=== PATIENT | male | born 1965 | race Caucasian/White ===

== ENCOUNTER 2017-05-22 21:39 | Observation (INO) | payer OTHER ==
[2017-05-22 22:23] LABS: #Eosinphils 0.1 thou/uL (0.0-0.7); #Lymphocytes 1.7 thou/uL (1.20-3.40); #Monocytes 0.5 thou/uL (0.11-0.59); #Neutrophils 3.2 thou/uL (1.40-6.50); %Basophils 0.5 % (0.0-1.0); %Eosinophils 2.7 % (0.0-10.0); %Lymphocytes 31.3 % (21.0-51.0); %Monocytes 8.1 % (0.0-10.0); Hematocrit 40.9 % (42.0-52.0); Mean Platelet Volume 7.5 fL (7.4-10.4); Red Blood Cell (RBC) Count 4.27 mill/uL (4.70-6.10); White Blood Cell (WBC) Count 5.5 thou/uL (4.8-10.8)
[2017-05-22 22:49] LABS: Troponin I Less than 0.010 ng/mL (< 0.028)
[2017-05-22 22:51] LABS: ALT (SGPT) 16 U/L (8-55); AST (SGOT) 21 U/L (5-34); Alkaline Phosphatase 67 U/L (40-150); Anion Gap 9 mmol/L (10-20); BUN (Urea Nitrogen) 10 mg/dL (8.9-20.6); Bilirubin, Total 0.4 mg/dL (0.2-1.2); CK (CPK) 36 U/L (30-200); Calc. Creatinine Clearance 0 mL/min (70-130); Calcium 8.5 mg/dL (7.8-10.44); Carbon Dioxide 26 mmol/L (22-29); Chloride 106 mmol/L (98-107); Estimated GFR-MDRD Greater than 90; Globulin 4.3 g/dL (2.4-3.5); Protein, Total 7.6 g/dL (6.0-8.3)
[2017-05-23 01:42] LABS: Troponin I Less than 0.010 ng/mL (< 0.028)
[2017-05-23] MEDS ORDERED: Acetaminophen 650 MG Suppository PR PRN (02:46)
[2017-05-23] MEDS ORDERED: Acetaminophen 325 MG TAB PO PRN (02:46)
[2017-05-23] MEDS ORDERED: Ondansetron ODT 4 MG TAB PO PRN (02:46)
[2017-05-23 03:17] VITALS: TEMP 98.1; BMI 17.1
[2017-05-23] MEDS ORDERED: Ondansetron ODT 4 MG TAB SL PRN (03:24)
[2017-05-23] MEDS ORDERED: Ondansetron HCl/PF 4 MG/2 ML Vial IVP PRN (03:24)
[2017-05-23] MEDS: HYDROmorphone 2 MG TAB PO PRN ×2 (04:10→09:56)
[2017-05-23 04:52] LABS: #Eosinphils 0.1 thou/uL (0.0-0.7); #Lymphocytes 1.4 thou/uL (1.20-3.40); #Monocytes 0.5 thou/uL (0.11-0.59); #Neutrophils 3.1 thou/uL (1.40-6.50); %Basophils 0.6 % (0.0-1.0); %Eosinophils 2.7 % (0.0-10.0); %Lymphocytes 27.1 % (21.0-51.0); %Monocytes 9.4 % (0.0-10.0); Hematocrit 43.9 % (42.0-52.0); Mean Platelet Volume 8.1 fL (7.4-10.4); Red Blood Cell (RBC) Count 4.59 mill/uL (4.70-6.10); White Blood Cell (WBC) Count 5.2 thou/uL (4.8-10.8)
[2017-05-23 05:18] LABS: Troponin I Less than 0.010 ng/mL (< 0.028)
[2017-05-23 07:07] LABS: Magnesium 2.2 mg/dL (1.6-2.6); Phosphorus 3.2 mg/dL (2.3-4.7)
[2017-05-23] MEDS ORDERED: fentaNYL 50 mcg/hour Patch TD SCH ×2 (08:00→09:15)
--- NOTE | 2017-05-23 08:04 | RAD ---
CHEST ONE VIEW: History: Chest pain. Comparison: 07-26-15 FINDINGS: Lungs are hyperinflated. No pneumothorax or effusion. Multiple cardiac leads are similar. There is a hazy opacity midright lung. IMPRESSION: Hazy opacity right midlung. This may be due to technique or pulmonary edema. Infection is within the differential. Follow up recommended. POS: [facility]
[2017-05-23] MEDS ORDERED: Clopidogrel Bisulfate 75 MG TAB PO SCH (09:00)
[2017-05-23] MEDS ORDERED: Venlafaxine HCl 25 MG TAB PO SCH (09:00)
[2017-05-23] MEDS ORDERED: Aspirin 325 MG TAB PO SCH (09:00)
[2017-05-23] MEDS ORDERED: levETIRAcetam 500 MG TAB PO SCH ×2 (09:00→21:00)
[2017-05-23] MEDS ORDERED: Gabapentin 300 MG CAP PO SCH (09:00)
[2017-05-23] MEDS ORDERED: HYDROmorphone 2 MG TAB PO PRN (09:03)
[2017-05-23 10:47] LABS: Acetaminophen Less than 6.0 mcg/mL (10.0-30.0); Salicylate Less than 8.0 mg/dL (15.0-30.0)
[2017-05-23 10:48] VITALS: BP 123/78
--- NOTE | 2017-05-23 12:47 | HP ---
CHIEF COMPLAINT: Chest pain and suicidal ideation. HISTORY OF PRESENT ILLNESS: Mr. Nic Clark is a 51-year-old white male patient with a prior hi story of spinal column fractures and chronic pain. He was admitted with left-sided chest pain descr ibed as sharp in nature, lasting no more than 20 seconds and reproducible by palpation. He also exp resses a desire to . He states that he has succinylcholine stashed at home and intends to take i t upon discharge. We have already notified the authorities as well as [facility]. PHYSICAL EXAMINATION: VITAL SIGNS: His blood pressure is 123/78, pulse rate 79, respirations 16. GENERAL: He is currently actually quite cheerful, awake, alert, in no distress. He is very thin, a lmost cachectic appearing. HEENT: Poor oral hygiene. NECK: Supple. CARDIAC: PMI is in the fifth intercostal space midclavicular line. S4 apical gallop. No murmur or rub noted. LUNGS: Breath sounds are diminished, but clear. No rales, rhonchi or wheezes. ABDOMEN: Flat and soft. NEUROLOGIC: No focal deficits. LABORATORY DATA: CBC: White count 5500, hemoglobin 13.8, hematocrit 40.9. Chemistries: Sodium 13 7, potassium 3.6, chloride 106, bicarbonate 26, BUN 10, creatinine 0.69. Serial troponins are all n egative. Liver enzymes normal. EKG shows a paced rhythm, no acute ischemic changes. ASSESSMENT: 1. Atypical chest pain, likely musculoskeletal. 2. Suicidal ideation. We have already contacted [facility]. We have notified the authorities regarding his stash of succinylcholine in [facility] [place]. We are awaiting a sitter until he can be evaluated by [facility].
--- NOTE | 2017-05-23 19:53 | PDOC.EVN ---
Event Note - Event Note Event Note: Pt attempted to leave AMA this morning. This was after he expressed suicidal ideation to the night team and reported to them that he had succinylcholine at his house and was wondering how to take the medication to kill himself. I went to the patient's room after getting a page from the nurse regarding patient's threates to leave AMA and discussed the importance of getting evaluated and cleared medically first, followed by evaluation by MR. Pt agreed to stay and understood. Pt then reportedly left the building without telling anyone. Security was paged and the patient was found in the ER parking lot. We then discussed on the rounds the importance of staying in the hospital to receive care. Pt understood and said he would stay. Discussed with pt that his tests so far were negative for cardiac etiology of his chest pain. He asked if he needed an echo and it was explained to him that in this case an echo was not indicated but that other work-up was being done regarding his other symptoms weakness/falls relating to patient's osteoporosis and cachexia. Pt understood. Got a call from the nurse ~1400 stating that the patient was agitated after hearing that we weren't going to do an echo on his heart. Nurse stated that patient left AMA despite trying to get the patient to stay. Nurse stated that security and the police were called. Police took down patient's information and license plate number. I discussed with my supervising attending Dr. Doe the situation and since the patient was exhibiting suicidal thoughts earlier this morning and was pending an [employer] evaluation, we decided to call the [place] police department as well as [employer] to notify both parties of the situation. Both parties stated they would go out to the patient's home to assess if the pt was actively having SI.
[2017-05-23] MEDS ORDERED: traZODone HCl 50 MG TAB PO SCH (21:00)
--- NOTE | 2017-05-24 02:57 | HP-2 ---
CODE STATUS: DNR. PRIMARY CARE PHYSICIAN: [facility] Call. ATTENDING: James Doe MD RESIDENT: Lillie Simms DO HISTORIAN: Patient. CHIEF COMPLAINT: Chest pain. 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 The pain happened at rest and was relieved on its own. No nausea, vomiting, diaphoresis or radiation of the pain. The patient de scribes a sudden sharp pain. He sees Dr. Edmondson, but has not seen him for some time due to his i nability to get to appointments. His last stress test was years ago and last echo was in 2014, whic h showed ejection fraction of 45%. The patient has had multiple falls due to the seizures and as a cause of the seizures has multiple vertebral compression fractures, leading to chronic back pain. H e takes Dilaudid and fentanyl patches regularly. Throughout the conversation, the patient continues to report his depression is a significant problem in his life, stating that he wishes he would just , also reports that he has succinylcholine that he bought from the nurse at his house, described the bottle with pink top and was asking the best way to take it to cause him to and which way w ould be faster if he drink it opposed to injecting it and so forth. The patient has a history of tw o suicide attempts in the past with Dilaudid overdose. PAST MEDICAL HISTORY: 1. CHF. 2. Hypertension. 3. Depression. 4. MCA infarct. 5. Endocarditis, status post valve replacement. 6. Multiple TIAs. 7. Chronic back pain. 8. Seizure disorder. 9. Compression fractures. PAST SURGICAL HISTORY: 1. Aortic valve replacement in 2011. 2. Pacemaker/defibrillator placement. 3. Appendectomy. 4. Left hernia repair. ALLERGIES: No known drug allergies. MEDICATIONS: 1. Aspirin 325 mg. 2. Plavix 75 mg. 3. Xanax 2 mg b.i.d. 4. Fentanyl patch 50 mcg q.72 hours. 5. Gabapentin 300 mg t.i.d. 6. Hydromorphone 4 mg q.4 hours for pain. 7. Ramipril 7.5 mg. 8. Venlafaxine 100 mg. 9. Keppra 500 mg b.i.d. FAMILY HISTORY: Noncontributory. SOCIAL HISTORY: Former smoker, one-half pack per day for 20 years. He denies alcohol and drug use, but does have history of drug addiction. REVIEW OF SYSTEMS: General: Negative for fever and chills. Positive for appetite and night sweats . Eyes: Negative for vision changes. Respiratory: Positive for cough. Cardiovascular: Positive for chest pain. Negative for palpitations or edema. Gastrointestinal: Negative for nausea, vomit ing, diarrhea, constipation or abdominal pain. Genitourinary: Positive for dysuria. Skin: Denies rashes or lesions. Musculoskeletal: Positive for pains and tenderness. Neurologic: Positive for weakness and seizures. Psychiatric: Positive for depression. PHYSICAL EXAMINATION: VITAL SIGNS: Blood pressure 114/71, pulse 81, respiratory rate 13, T-max 98.6, pulse oximetry 96% o n room air, current weight 49 kilograms. GENERAL: The patient is alert and oriented x4, in no acute distress, is thin and very cachectic [facility]. EYES: EOMI. ENT: Significant temporal wasting bilaterally along with sunken cheeks. Oral cavity reveals poor d entition. NECK: Supple, without lymphadenopathy. CARDIOVASCULAR: Regular rate and rhythm. No murmurs. RESPIRATORY: Normal effort, no retractions. Clear to auscultation bilaterally. SKIN: Without cyanosis. Warm and dry. ABDOMEN: Soft, nontender. Bowel sounds positive. No CVA tenderness. EXTREMITIES: Negative for clubbing, cyanosis or edema. MUSCULOSKELETAL: Tender to palpation along the spine, atrophic muscles throughout. NEUROLOGIC: No focal deficits. PSYCHIATRIC: Severely depressed with suicidal ideations. LABORATORY DATA: CBC: White count 5.5, hemoglobin 13.8, hematocrit 40.9, platelets 132. Chemistrie s: Sodium 137, potassium 3.6, chloride 106, CO2 of 26, BUN 10, creatinine 0.69, glucose 92. Calciu m 8.5, total protein 7.6, albumin 3.3, total bilirubin 0.4, AST 21, ALT 16, alkaline phosphatase 67. CRP 1.04. CK-MB 0.8, troponin is less than 0.010. EKG: Paced rhythm elevated R-wave progression, ST depression in lead V. ASSESSMENT AND PLAN: 1. Atypical chest pain, likely secondary to musculoskeletal cause. Trend troponins with extensive history and possible cardiology consult in the morning. 2. Suicidal ideation. We will consult [facility] and urine drug screen and alcohol level ordered. 3. Chronic pain. Continue home Dilaudid and fentanyl patch. 4. Cachexia. Prealbumin ordered and consult dietitian and Ensure supplements t.i.d. 5. History of drug use. RPR, hepatitis C and HIV ordered. DISPOSITION AND LENGTH OF HOSPITAL STAY: One-two days. Symptomatic medications will be provided. History and physical exam as well as management were discussed with Dr. James Doe.
[2017-05-24] MEDS ORDERED: Atorvastatin Calcium 10 MG TAB PO SCH (09:00)
[2017-05-24] MEDS ORDERED: Clopidogrel Bisulfate 75 MG TAB PO SCH (09:00)
--- NOTE | 2017-05-24 13:14 | DIS-2 ---
DATE OF ADMISSION: 05/23/2017 DATE OF DISCHARGE: 05/23/2017 via AMA. ADMITTING RESIDENT: Lillie Simms DO. ADMITTING ATTENDING: James Doe MD DISCHARGE RESIDENT: Marisol Ramirez MD DISCHARGE ATTENDING: James Doe MD PROCEDURES: EKG showed paced rhythm with elevated R-wave progression. ST depression in lead 5. PRIMARY DIAGNOSES: 1. Atypical chest pain. 2. Suicidal ideation. SECONDARY DIAGNOSES: 1. Chronic pain. 2. Cachexia. 3. History of drug use. DISCHARGE MEDICATIONS: The patient left AMA, not being discharged on new medications. Medications ordered during the hospital stay, trazodone 50 mg p.o. at night. HOME MEDICATIONS: 1. Diazepam 5 mg t.i.d. 2. Aspirin 325 mg p.o. daily. 3. Atorvastatin 10 mg p.o. daily. 4. Plavix 75 mg p.o. daily. 5. Dilaudid 4 mg p.o. q.4 hours. 6. Protonix 40 mg p.o. daily. 7. Ramipril 2.5 mg p.o. daily. 8. Venlafaxine 75 mg p.o. daily. 9. Fentanyl 50 mcg patch every 3 days. 10. Keppra 500 mg p.o. b.i.d. 11. Trazodone 100 mg p.o. at night. HISTORY OF PRESENT ILLNESS AND HOSPITAL COURSE: The patient is a 51-year-old male with a significan t past medical history of endocarditis in 2011 from a tooth infection status post valve replacement, which led to CVA of his MCA, and subsequent seizure disorder presenting with 1-day history of chest pain. Pain occurs at rest and was relieved on its own. The patient denies nausea, vomiting, diaph oresis, or radiation. The patient describes a sharp sudden pain. The patient's last stress test wa s several years ago and his last echo was in 2017, which showed an ejection fraction of 45%. Alina white has also had multiple falls due to seizures and as a cause of the seizures, has multiple vertebral compression fractures leading to chronic back pain. Patient takes Dilaudid and fentanyl at home re gularly. The patient continues to report depression. Patient states that he wishes he would just d ie. Also, reports that he has succinylcholine at home that he bought from a nurse. Patient describ es that the bottle has a pink top, was asking the best way to take it to cause him to , in which way will be faster from denying drinking it versus injecting it. The patient has a history of 2 jesus cide attempts in the past with Dilaudid overdose. 1. Atypical chest pain: The patient presented with this atypical chest pain that occurs at rest an d is described as sharp without radiation, without worsening on exertion, and sudden disappearance o f the pain. Cardiac profile was ordered including CK-MB and patient's troponins were less than 0.01 . The patient's CK-MB was normal at 0.8. Patient's EKG did not show any signs of ST elevation and only had one lead showing ST depression. This was not present in contiguous leads and this pain was not presenting an atypical chest pain fashion suggesting cardiac etiology. A repeat EKG was ordere d. This chest pain is likely secondary to musculoskeletal cause. Since this pain is likely musculo skeletal, a stress test was not ordered. 2. Suicidal ideation. The patient was found to have multiple suicide attempts in the past from graeme ing Dilaudid and made comments reflecting suicidal ideation on initial H and P, [facility] was consulted p ending medical clearance. While attempting to clear the patient medically, the patient attempted to leave AMA, and this was after he expressed suicidal ideation to the night team and then reported to them that he had succinylcholine at his house and was wondering how to take the medication to kill himself. Upon threatening to leave AMA, the day Medicine team went and evaluated the patient and di scussed with him the importance of staying to be medically cleared and then be evaluated by [facility] for further psychiatric care. The patient agreed to stay and understood. However, the patient then re portedly left the building without telling anyone. Security was paged and the patient was found in the ER parking lot. The day Medicine team then discussed on rounds with the patient again the impor tance of staying in the hospital to receive care. The patient understood and said he would stay. I discussed with the patient that his tests so far were negative for cardiac etiology of his chest pa in and he asked if he needed a echo. It was explained to him that in his case, an echo was not kevon cated and another workup was being done regarding his other symptoms including weakness and falls re lating to the patient's osteoporosis and cachexia. The patient understood. Later that same day at approximately 1400, the nurse called stating the patient got agitated after hearing that he was not going to receive an echo. Nurse stated that the patient left AMA despite trying to get the patient to stay. Patient also had a 1:1 sitter at this time. Nurse stated that security and the police wer e called. Police took down the patient's information and license plate number. It was discussed wi th our supervising attending, Dr. Doe, the situation, and since the patient was exhibiting suic idal thoughts earlier this morning and was pending an [facility] evaluation, we decided to call [facility] police department as well as [facility] to notify both parties of the situation. Both parties stated th at they would go out to the patient's home if the patient was actively having SI. 3. Osteoporosis. The patient states he has osteoporosis that he has had recent falls with multiple compression fractures secondary to his seizure disorder. Patient left while various labs are pendi ng including a vitamin D level. 4. Cachexia. There is additional labs were ordered, evaluating the patient's cachexia including HI V, hepatitis C, and RPR. Patient left before complete workup could be done. 5. History of drug use and RPR, hepatitis C and HIV were ordered. Again, patient left AMA without complete workup of these additional problems. DISPOSITION: The patient left AMA with what appeared to be active suicidal ideation. [facility] Department and [facility] were called and notified of the situation. The patient was psychiatricall y unstable when he left the hospital. DISCHARGE INSTRUCTIONS: There were no discharge instructions as patient left AMA. We would still r ecommend the patient follow up closely with psychiatric care as well as primary care physician to fu rther evaluate both patient's psychiatric illness and acute on chronic conditions.
[2017-05-24 15:30] LABS: Folate,Hemolysate 349.8 ng/mL (Not Estab.); Hematocrit 39.3 % (37.5-51.0); RBC Folate Test Component 890 ng/mL (>498)
[2017-05-25 17:13] LABS: Hep C PCR-Quant 6630000 IU/mL (.)
== END 2017-05-23 13:15 | disposition left against medical advice (07) ==
LOC: ERS 21:39 → 2SW 05-23 00:25 → T4-B 05-23 10:59
PROVIDERS: ADMIT Family Medicine; ATTEND Family Medicine
DX: R07.89 Other chest pain (principal); R45.851 Suicidal ideations; R64 Cachexia; I11.0 Hypertensive heart disease with heart failure; I50.9 Heart failure, unspecified; G40.909 Epilepsy, unspecified, not intractable, without status epilepticus; M54.9 Dorsalgia, unspecified; F32.9 Major depressive disorder, single episode, unspecified; M81.0 Age-related osteoporosis without current pathological fracture; Z79.02 Long term (current) use of antithrombotics/antiplatelets; Z79.82 Long term (current) use of aspirin; Z79.899 Other long term (current) drug therapy; Z91.81 History of falling; Z95.810 Presence of automatic (implantable) cardiac defibrillator; Z90.49 Acquired absence of other specified parts of digestive tract; Z95.2 Presence of prosthetic heart valve; Z98.890 Other specified postprocedural states; Z87.891 Personal history of nicotine dependence; Z91.5 Personal history of self-harm; Z87.81 Personal history of (healed) traumatic fracture; Z86.79 Personal history of other diseases of the circulatory system; Z86.73 Personal history of transient ischemic attack (TIA), and cerebral infarction without residual deficits; Z86.59 Personal history of other mental and behavioral disorders
CPT/HCPCS: 36415; 71010; 80053; 80061; 80307; 82306; 82553; 82607; 82747; 83735; 84100; 84134; 84443; 84484; 85014; 85025; 85652; 86140; 86780; 86803; 87389; 87522; 93005; 93010; G0378; G8987-GO-CH; G8988-GO-CH; G8989-GO-CH

== ENCOUNTER 2017-06-16 13:52 | Emergency (ER) | payer OTHER ==
[2017-06-16 14:52] LABS: #Eosinphils 0.1 thou/uL (0.0-0.7); #Lymphocytes 1.7 thou/uL (1.20-3.40); #Monocytes 0.5 thou/uL (0.11-0.59); #Neutrophils 3.9 thou/uL (1.40-6.50); %Basophils 0.8 % (0.0-1.0); %Eosinophils 1.9 % (0.0-10.0); %Lymphocytes 26.5 % (21.0-51.0); %Monocytes 8.6 % (0.0-10.0); Hematocrit 46.3 % (42.0-52.0); Mean Platelet Volume 7.8 fL (7.4-10.4); White Blood Cell (WBC) Count 6.3 thou/uL (4.8-10.8)
[2017-06-16 15:21] LABS: ALT (SGPT) 21 U/L (8-55); AST (SGOT) 26 U/L (5-34); Acetaminophen Less than 6.0 mcg/mL (10.0-30.0); Alkaline Phosphatase 74 U/L (40-150); Anion Gap 19 mmol/L (10-20); BUN (Urea Nitrogen) 14 mg/dL (8.4-25.7); Bilirubin, Total 0.8 mg/dL (0.2-1.2); Calc. Creatinine Clearance 0 mL/min (70-130); Calcium 9.8 mg/dL (7.8-10.44); Carbon Dioxide 21 mmol/L (22-29); Chloride 100 mmol/L (98-107); Estimated GFR-MDRD 87; Protein, Total 9.4 g/dL (6.0-8.3); Salicylate Less than 8.0 mg/dL (15.0-30.0)
--- NOTE | 2017-08-11 14:45 | EKG ---
Test Reason : Blood Pressure : / mmHG Vent. Rate : 081 BPM Atrial Rate : 081 BPM P-R Int : 178 ms QRS Dur : 152 ms QT Int : 450 ms P-R-T Axes : 045 022 069 degrees QTc Int : 522 ms AV dual-paced rhythm Abnormal ECG Confirmed by SID ULRICH, ADIA Lozano ([id number]), film editor PADDY HOLM ([id number]) on 08/11/2017 2:45:19 PM Referred By: Confirmed By:ADIA LAU MD
== END 2017-06-16 16:40 | disposition home or self-care (01) ==
LOC: ERS 13:52
DX: R55 Syncope and collapse (principal); I50.9 Heart failure, unspecified; F41.9 Anxiety disorder, unspecified; F32.9 Major depressive disorder, single episode, unspecified; F17.210 Nicotine dependence, cigarettes, uncomplicated; Z79.82 Long term (current) use of aspirin; Z79.899 Other long term (current) drug therapy; Z86.73 Personal history of transient ischemic attack (TIA), and cerebral infarction without residual deficits
CPT/HCPCS: 36415; 80053; 80307; 85025; 93005

== ENCOUNTER 2017-09-03 17:38 | Observation (INO) | payer OTHER ==
[2017-09-03] MEDS ORDERED: Ketorolac Tromethamine 30 MG/ML VIAL ONE (18:44)
[2017-09-03 19:05] LABS: CKMB 0.7 ng/mL (0-6.6); Troponin I 0.014 ng/mL (< 0.028)
--- NOTE | 2017-09-03 19:44 | RAD ---
PORTABLE CHEST: History: Chest Pain. FINDINGS: Lungs appear clear. Heart and mediastinum unremarkable. Pacemaker leads are again noted. Prosthetic a ortic valve. No change from 07-01-17. IMPRESSION: No acute finding. POS: [facility]
[2017-09-03] MEDS ORDERED: Fentanyl 100 MCG/2 ML VIAL ONE (20:24)
[2017-09-03 21:52] LABS: Troponin I 0.016 ng/mL (< 0.028)
[2017-09-03] MEDS ORDERED: Morphine 4 MG/ML Carpuject SLOW IVP PRN (22:54)
[2017-09-03] MEDS ORDERED: Calcium Carbonate 500 MG ChewTAB PO PRN (23:08)
[2017-09-03] MEDS ORDERED: Loperamide HCl 2 MG CAP PO PRN (23:08)
[2017-09-03] MEDS ORDERED: Senokot 8.6 MG TAB PO PRN (23:08)
[2017-09-03] MEDS ORDERED: Ondansetron HCl/PF 4 MG/2 ML Vial IVP PRN (23:08)
[2017-09-03] MEDS ORDERED: Diabetic Tussin 200 MG/10 ML UDCUP PO PRN (23:08)
[2017-09-03] MEDS ORDERED: cloNIDine 0.1 MG TAB PO PRN (23:08)
[2017-09-03] MEDS ORDERED: Acetaminophen 325 MG TAB PO PRN (23:08)
[2017-09-03] MEDS ORDERED: Benzonatate 100 MG CAP PO PRN (23:08)
[2017-09-03] MEDS ORDERED: Milk Of Magnesia 30 ML UDCUP PO PRN (23:08)
[2017-09-03] MEDS ORDERED: HYDROcodone/Acetaminophen 5/325 mg Tablet PO PRN (23:08)
[2017-09-03] MEDS ORDERED: Bisacodyl 5 MG TAB PO PRN (23:08)
[2017-09-03] MEDS ORDERED: hydrALAZINE 20 MG/ML VIAL SLOW IVP PRN (23:08)
[2017-09-03] MEDS ORDERED: Nitroglycerin 0.4 MG TAB (25 Tab Bottle) SL PRN (23:08)
[2017-09-03] MEDS ORDERED: Pepto Bismol Chew TAB PO PRN (23:08)
[2017-09-03] MEDS ORDERED: traMADol HCl 50 MG TAB PO PRN (23:08)
[2017-09-03] MEDS ORDERED: Loratadine 10 MG TAB PO PRN (23:08)
[2017-09-03] MEDS ORDERED: Mag-Al 1200 mg/1200 mg/30 ML UDCUP PO PRN (23:08)
--- NOTE | 2017-09-04 00:07 | HP ---
PRIMARY CARE PHYSICIAN: Dr. Romero. CHIEF COMPLAINT: Chest pain and seizures. HISTORY OF PRESENT ILLNESS: Mr. 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 History is mainly obtained by the patient himself and electronic medical records have been reviewed. He was last admitted to our facility in 2016 for suicidal ideation, but left AMA. Mr. Clark came to the [facility] today with complaints of sharp chest pain. He reports that he has been feeling really poorly for the last few weeks to months. He has very poor appetite, is hurting all the time and is barely eating. He has been having multiple psychotic episodes with seeing people around him. His elderly father is responsible for his care, but he has been to [facility] 2 or 3 times in the last few months because of his psychotic breakdown. Nevertheless, he reports that he has been having on and off chest pain for the few weeks, but today he had a very sharp episode of chest pain which "took his breath away." He describes this pain as a 10/10 in intensity with radiation down his left arm. It was associated with palpitations , but no sweating, nausea or vomiting. He denies any shortness of breath. He also reports that he has been having seizures more frequently. He has had about 5 seizures in the last few days. He reports being compliant with his anti -seizure medication of Keppra 3 times a day. He also has been on heavy pain medications including Dilaudid every 4 hours and fentanyl patch as prescribed by some pain medication physician in [facility]. Upon presentation to the emergency room, he is hemodynamically stable with the blood pressure 108/70 with a pulse of 81, saturating 98% on room air. He is afebrile. His initial workup includes a 12-lead EKG which showed paced rhythm without any ectopy. ST segments and T waves are normal. He received Toradol, aspirin as well as fentanyl in the emergency room for pain. He is now being admitted primarily for chest pain workup. His last echocardiogram was done in 05/2015 which showed ejection fraction of 45-50%, prosthetic mitral valve. Today, his initial cardiac enzymes are unremarkable x2. His CK-MB is within normal limits. PAST MEDICAL HISTORY: 1. Histologically of congestive heart failure. 2. Hypertension. 3. Depression. 4. MCA infarction. 5. Endocarditis status post mitral valve replacement. 6. Multiple TIAs. 7. Chronic back pain. 8. Chronic narcotic dependence. 9. History of seizure disorder. PAST SURGICAL HISTORY: 1. Pacemaker defibrillator placement. 2. History of splenic laceration after a fall. SOCIAL HISTORY: He is an everyday smoker. He lives close to his elderly father who is his primary caregiver. Remote history of drug abuse. Currently, denies any use of marijuana, cocaine or methamphetamines. ALLERGIES: No known medication allergies. FAMILY HISTORY=no premature CAD,CVA CURRENT MEDICATIONS: As listed in his ER record include aspirin 325 mg daily, Plavix 75 mg daily, fentanyl patch 50 mcg every 72 hours, hydromorphone 4 mg every 4 hours p.r.n., gabapentin 300 t.i.d., Keppra 250 b.i.d., but unable to confirm the dose, ramipril 7.5 mg in the morning, Xanax 5 mg b.i.d. and Effexor , unknown dose. REVIEW OF SYSTEMS: The following complete review of systems was negative, unless otherwise mentioned in the HPI or below: Constitutional: Weight loss or gain, ability to conduct usual activities. Skin: Rash, itching. Eyes: Double vision, pain. ENT/Mouth: Nose bleeding, neck stiffness, pain, tenderness. Cardiovascular: Palpitations, dyspnea on exertion, orthopnea. Respiratory: Shortness of breath, wheezing, cough, hemoptysis, fever or night sweats. Gastrointestinal: Poor appetite, abdominal pain, heartburn, nausea, vomiting, constipation, or diarrhea. Genitourinary: Urgency, frequency, dysuria, nocturia. Musculoskeletal: Pain, swelling. Neurologic/Psychiatric: Anxiety, depression. Allergy/Immunologic: Skin rash, bleeding tendency. The review of systems is negative except for those mentioned in the history and physical. He denies any fever, chills, cough, runny nose or sore throat. He denies any abdominal pain, nausea, vomiting or diarrhea. Denies any dysuria or hematuria. He denies any orthopnea or PND. PHYSICAL EXAMINATION: VITAL SIGNS: Upon presentation include blood pressure 108/70, pulse of 81, respirations 20, saturating 98% on room air, temperature 97.7. GENERAL: He is in no acute distress. He appears severely malnourished and cachectic with severe muscle wasting throughout the body, but he is alert, oriented x3. HEENT: Mucous membrane is moist and pink. No oropharyngeal exudate or erythema. Head is normocephalic, atraumatic. Pupils equal, reactive to light and accommodation. Extraocular movements intact. NECK: Supple without any lymphadenopathy, JVD or bruit. CHEST: Clear to auscultation without any wheezing, rales or rhonchi. CARDIOVASCULAR: Rate and rhythm is regular without any murmur, rubs or gallops. S1 click is heard. ABDOMEN: Soft, nontender, nondistended with positive bowel sounds. EXTREMITIES: Free of any cyanosis, clubbing, or edema. NEUROLOGIC: Nonfocal. SKIN: Free of any rashes or bruises. Feels warm and dry to touch. PSYCHIATRIC: Normal affect. The patient denies any suicidal ideation at this time. LABORATORY EXAMINATION: Twelve lead EKG by my review shows paced rhythm. Troponin 0.014 and the repeat troponin is 0.016 with a CK-MB of 0.7. Chest x- ray by my evaluation has no acute findings. No pulmonary effusion or infiltrates. IMPRESSION AND PLAN: 1. Chest pain. It is of unclear etiology at this time. Given his extensive cardiac history and prosthetic mitral valve, we will obtain a transthoracic echocardiogram. Continue to trend serial cardiac enzymes and continue aspirin and Plavix at this time. We will also have his pacemaker interrogated. Some of his pain symptoms can be due to withdrawal from the narcotics. Possibility of a panic attack and psychotic episodes is also likely. Nevertheless, he will be admitted to telemetry unit and we will monitor his symptoms closely. Restart his RENATA inhibitor once the dose is confirmed. 2. Breakthrough seizures. We will start him on IV Keppra for now and consult Neurology in the morning. He might benefit from addition of a second anti- seizure medication. We will recheck the levels of the Keppra at this time. The patient does report compliance, but by the history, he has provided it is high possibility that he has missed some dosages. He reports his seizure episodes as generalized tonic clonic, but most of the time he says the only sequela of his seizures is that he finds himself on the floor and he has hit his head or lost a tooth. 3. History of infective endocarditis with mitral valve replacement. The patient was not deemed a candidate for chronic anticoagulation therapy. He will be continued on aspirin and Plavix and as above, we will perform a transthoracic echocardiogram to assess his cardiac function. The possibility of lead infection is very low at this time. The patient does not present with any septic symptoms. 4. Psychiatric illness. The patient denies any suicidal ideation at this time. We will restart his medications once confirmed through his pharmacy. 5. Chronic narcotic dependence. The patient is desirous of getting off of his chronic narcotics. He will be deferred to pain medication clinic at [place] in long-term. We will minimize the use of pain medications at this time. 6. Severe protein-calorie malnutrition. We will consult dietitian in the morning and start him on Ensure Enlive three times a day with high protein and high-calorie regular diet. 7. History of drug abuse. The patient denies any current use. We will check his urine for drug screen at this time as well. 8. Deep venous thrombosis and gastrointestinal prophylaxis. DISPOSITION: Mr. Clark is being admitted under observation status for workup of chest pain and breakthrough seizures. Estimated length of stay at this time is less than 2 midnights. He needs long-term placement and we will have case management consult on his case to provide him with information. We will have OT, PT evaluate him to see if he is a rehabilitation candidate. CLAUDINE
[2017-09-04] MEDS: Morphine 5 MG/ML SYRINGE SLOW IVP PRN ×6 (00:23→22:44)
[2017-09-04 01:01] LABS: Bilirubin Negative (Negative); Blood, Urine Negative (Negative); Clarity CLEAR (Clear); Glucose, Urine (Dipstick) Negative (Negative); Leukocyte Negative (Negative); Nitrite Negative (Negative); Protein, Urine (Dipstick) Trace mg/dL (Neg-Trace); Specific Gravity, Urine 1.033 (1.002-1.036); Urobilinogen 0.2 mg/dL (0.2-1.0)
[2017-09-04 01:22] LABS: Amphetamine Not Detected (NotDetected); Barbiturates Screen Not Detected (NotDetected); Benzodiazepine Screen Detected (NotDetected); Cocaine Metabolite Screen Not Detected (NotDetected); Medtox Control Line Valid? VALID (VALID); Medtox Reader # READER 4; Methadone Not Detected (NotDetected); Methamphetamine Detected (NotDetected); Opiate Screen Not Detected (NotDetected); Oxycodone Screen Not Detected (NotDetected); Phencyclidine (PCP) Not Detected (NotDetected); THC/Cannabinoid Screen Not Detected (NotDetected); Tricyclic Screen Not Detected (NotDetected)
[2017-09-04 01:23] LABS: Troponin I 0.014 ng/mL (< 0.028)
[2017-09-04] MEDS: Lorazepam 1 MG TAB PO PRN ×4 (01:45→22:44)
[2017-09-04 04:34] LABS: #Basophils 0.1 thou/uL (0.0-0.2); #Eosinphils 0.1 thou/uL (0.0-0.7); #Monocytes 0.5 thou/uL (0.11-0.59); #Neutrophils 3.8 thou/uL (1.40-6.50); %Basophils 1.3 % (0.0-1.0); %Eosinophils 1.5 % (0.0-10.0); %Lymphocytes 30.9 % (21.0-51.0); %Monocytes 7.4 % (0.0-10.0); Hemoglobin 12.7 g/dL (14.0-18.0); Mean Corpuscular HGB CONC 33.3 g/dL (32.0-36.0); Mean Corpuscular Hemoglobin 32.6 pg (27.0-31.0); Mean Corpuscular Volume 97.7 fl (80.0-94.0); Mean Platelet Volume 8.2 fL (7.4-10.4); Platelet Count 182 thou/uL (130-400); RBC Distribution Width 13.2 % (11.5-14.5); Red Blood Cell (RBC) Count 3.91 mill/uL (4.70-6.10); White Blood Cell (WBC) Count 6.5 thou/uL (4.8-10.8)
[2017-09-04 04:53] LABS: Anion Gap 11 mmol/L (10-20); BUN (Urea Nitrogen) 18 mg/dL (8.4-25.7); Calc. Creatinine Clearance 118 mL/min (70-130); Calcium 7.1 mg/dL (7.8-10.44); Carbon Dioxide 18 mmol/L (22-29); Chloride 112 mmol/L (98-107); Estimated GFR-MDRD Greater than 90; Glucose 91 mg/dL (70-105); Potassium 3.1 mmol/L (3.5-5.1); Sodium 138 mmol/L (136-145)
[2017-09-04] MEDS ORDERED: Potassium Chloride 40 MEQ in Sodium Chloride 0.9% 500 ML IVPB SCH (05:15)
[2017-09-04] MEDS: Famotidine 20 MG TAB PO SCH ×2 (08:55→21:45)
[2017-09-04] MEDS: Enoxaparin Sodium 40 MG/0.4 ML SYRINGE SC SCH (08:55)
--- NOTE | 2017-09-04 13:06 | PDOC.PN ---
- Subjective Encounter Start Date: 09/04/17 Encounter Start Time: 07:00 Pt seen for followup re: chest pain. Reports on and off chest pain, chronic. No fevers or chills. No cough. - Objective MAR Reviewed: Yes Vital Signs & Weight: Vital Signs (12 hours) Temp Pulse Resp BP BP Pulse Ox 09/04/17 11:56 98.8 F 84 16 105/67 96 09/04/17 08:00 97.6 F 82 16 09/04/17 07:25 97.6 F 82 16 105/69 99 09/04/17 04:00 98.0 F 80 20 118/78 98 09/04/17 02:46 98.0 F 81 20 Weight Weight 125 lb 12.8 oz I&O: 09/03/17 09/04/17 09/05/17 06:59 06:59 06:59 Intake Total 510 Output Total 650 Balance -140 Result Diagrams: 09/04/17 00:39 09/04/17 00:39 EKG Reviewed by me: Yes (Tele: AV paced) Phys Exam - Physical Examination appears frail HEENT: PERRLA, moist MMs, sclera anicteric, oral pharynx no lesions Neck: no nodes, no JVD, supple, full ROM Respiratory: no wheezing, no rales, no rhonchi, clear to auscultation bilateral Cardiovascular: RRR Gastrointestinal: soft, non-tender, no distention, positive bowel sounds Neurological: moves all 4 limbs Psychiatric: normal affect, A&O x 3 Skin: no rash Dx/Plan (1) Chest pain Code(s): R07.9 - CHEST PAIN, UNSPECIFIED Status: Acute (2) Seizure Code(s): R56.9 - UNSPECIFIED CONVULSIONS Status: Chronic (3) Anxiety Code(s): F41.9 - ANXIETY DISORDER, UNSPECIFIED Status: Chronic (4) History of mitral valve replacement Code(s): Z95.2 - PRESENCE OF PROSTHETIC HEART VALVE Status: Chronic (5) Hypertension Code(s): I10 - ESSENTIAL (PRIMARY) HYPERTENSION Status: Chronic Qualifiers: Hypertension type: essential hypertension Qualified Code(s): I10 - Essential (primary) hypertension - Plan * . Pt also had a run of V-tach, await cardiology input. Await neurology consult re: seizure. Will likely need placement. Monitor vital signs, titrate antihypertensives as needed. Review of Systems - Review of Systems Constitutional: negative: fever, chills, sweats, weakness, malaise Respiratory: negative: Cough, Dry, Shortness of Breath, Hemoptysis, SOB with Excertion, Pleuritic Pain, Sputum, Wheezing Cardiovascular: chest pain. negative: palpitations, orthopnea, paroxysmal nocturnal dyspnea, edema, light headedness Gastrointestinal: negative: Nausea, Vomiting, Abdominal Pain, Diarrhea, Constipation, Melena, Hematochezia Genitourinary: negative: Dysuria, Frequency, Incontinence, Hematuria, Retention - Medications/Allergies Allergies/Adverse Reactions: Allergies Allergy/AdvReac Type Severity Reaction Status Date / Time No Known Drug Allergies Allergy Verified 05/23/17 03:37 Medications: Current Medications Acetaminophen (Tylenol) 650 mg PO Q4H PRN PRN Reason: Headache/Fever or Pain Hydrocodone Bitart/Acetaminophen ([place] 5/325) 1 tab PO Q4H PRN PRN Reason: Moderate Pain (4-6) Hydrocodone Bitart/Acetaminophen ([place] 5/325) 2 tab PO Q4H PRN PRN Reason: Severe Pain (7-10) Al Hydroxide/Mg Hydroxide (Maalox) 30 ml PO Q6H PRN PRN Reason: Heartburn or Indigestion Benzonatate (Tessalon) 100 mg PO Q4H PRN PRN Reason: Cough Bisacodyl (Dulcolax) 10 mg PO DAILYPRN PRN PRN Reason: Constipation Bismuth Subsalicylate (Pepto Bismol) 2 tab PO Q1H PRN PRN Reason: Diarrhea/Loose Stools Calcium Carbonate (Tums) 1,000 mg PO Q4H PRN PRN Reason: Heartburn or Indigestion Clonidine (Catapres) 0.1 mg PO Q4H PRN PRN Reason: Systolic BP > 160 Enoxaparin Sodium (Lovenox) 40 mg SC 0900 [facility] Last Admin: 09/04/17 08:55 Dose: 40 mg Famotidine (Pepcid) 20 mg PO BID [facility] Last Admin: 09/04/17 08:55 Dose: 20 mg Guaifenesin (Robitussin Sf) 200 mg PO Q4H PRN PRN Reason: Cough Hydralazine HCl (Apresoline) 10 mg SLOW IVP Q4H PRN PRN Reason: Systolic BP > 180 Levetiracetam 500 mg/ Device 100 mls @ 200 mls/hr IVPB BID MARKIE Last Admin: 09/04/17 08:55 Dose: 100 mls Lactulose (Lactulose) 20 gm PO DAILYPRN PRN PRN Reason: Constipation Loperamide HCl (Imodium) 2 mg PO PRN PRN PRN Reason: Diarrhea/Loose Stools Loratadine (Claritin) 10 mg PO DAILYPRN PRN PRN Reason: Sinus Symptoms Lorazepam (Ativan) 1 mg PO Q4H PRN PRN Reason: Anxiety/Agitation Last Admin: 09/04/17 11:15 Dose: 1 mg Magnesium Hydroxide (Milk Of Magnesium) 30 ml PO DAILYPRN PRN PRN Reason: Constipation Morphine Sulfate (Morphine) 4 mg SLOW IVP Q4H PRN PRN Reason: pain Last Admin: 09/04/17 09:30 Dose: 4 mg Nitroglycerin (Nitrostat) 0.4 mg SL Q5MIN PRN PRN Reason: Chest Pain Ondansetron HCl (Zofran) 4 mg IVP Q6H PRN PRN Reason: Nausea/Vomiting Senna (Senokot) 2 tab PO HSPRN PRN PRN Reason: Constipation Tramadol HCl (Ultram) 50 mg PO Q4H PRN PRN Reason: Moderate Pain (4-6)
[2017-09-04] MEDS: levETIRAcetam 500 MG TAB PO SCH (21:45)
--- NOTE | 2017-09-04 21:52 | CON ---
DATE OF CONSULTATION: 09/04/2017 REASON FOR CONSULTATION: Chest pain. HISTORY OF PRESENT ILLNESS: Nic Clark is a very pleasant 52-year-old gentleman with a history of mitral valve replacement following an episode of endocarditis, also has pacemaker insertion, consu lted for chest pain. Mr. Clark stated that he started having chest pain which was severe and intense earlier today at t he left side of his chest and went under his left arm. When the pain worsened, he ultimately came he re to the emergency room where he had been consulted. He is currently pain-free. The patient states his appetite is very poor. He also suffers from depression. He did receive Toradol and fentanyl in the emergency room. PAST MEDICAL HISTORY: 1. History of mitral valve replacement for endocarditis. 2. History of middle cerebral artery infarction. 3. History of transient ischemic attack. PAST SURGICAL HISTORY: Previous pacemaker insertion. SOCIAL HISTORY: He smokes daily. Remote history of drug abuse. MEDICATIONS PRIOR TO ADMISSION: 1. Aspirin. 2. Plavix. 3. Fentanyl patch. 4. Gabapentin. REVIEW OF SYSTEMS: Constitutional: No significant weight gain or loss. Vision: No changes. Heari ng: No changes. Pulmonary: No cough or wheezing. Gastrointestinal: No nausea, vomiting, or diarr hea. Skin: No rashes. Neurologic: No unilateral weakness or numbness. Psychiatric: No unusual d epression or anxiety. PHYSICAL EXAMINATION: GENERAL: This is a very thin, underweight gentleman. VITAL SIGNS: 5 feet 11 inches tall, 125 pounds. EYES: Sclerae anicteric. Mouth, mucous membranes are moist. NECK: Supple. No lymphadenopathy. LUNGS: Clear. No wheezing, rales, or rhonchi. CARDIAC: Normal S1, normal S2. There is a soft systolic murmur at the left lower sternal border. N o diastolic murmur, no S3. ABDOMEN: Soft, nontender. EXTREMITIES: No clubbing or cyanosis. There is no edema. LABORATORY AND X-RAY FINDINGS: EKG did not show any ischemic changes. Cardiac enzymes were negative. EKG showed atrial and ventricular pacing. ASSESSMENT: 1. Status post mitral valve replacement. 2. History of endocarditis. 3. Normal coronary arteries at catheterization in 2011. 4. Previous pacemaker insertion. 5. Chest pain, atypical for angina. PLAN: Stress test to be done tomorrow. Dr. Edmondson will resume care tomorrow. ADDENDUM: The patient did have an episode of nonsustained ventricular tachycardia, 26 beats. As mentioned, the patient will undergo stress testing. In addition, the patient did undergo echocardiography. The pa tient did have normal valve function. The entire report has not yet made it to the chart. Hopefully , the medical record system will be functional tomorrow.
--- NOTE | 2017-09-05 02:22 | CON ---
DATE OF CONSULTATION: 09/04/2017 REFERRING PROVIDER: Dr. Dori Valencia. REASON FOR CONSULTATION: Seizure. HISTORY OF PRESENT ILLNESS: Mr. Clark is a pleasant 52-year-old male who has been reji rned for evaluation of seizures. History is obtained from the patient. Patient reports that he deve loped seizure approximately 2 years ago after he had a stroke. 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 He reports that he had developed seizures at that tatiana e and was started on Keppra. He has never been seen by neurologist in the past. He reports that sin ce that time, he has had increasing episodes of passing out spells. He notes that over the past 1 we ek, he has passed out at least 4 or 5 times. There is no family member present at bedside. With his passing out spell, he wakes up and finds himself lying on the floor and has loss of time. He also h as chewed his teeth and tongue and has frothing around his mouth. He has had numerous falls which trevino s resulted in loss of teeth on the top front and bottom front. He states that he has been compliant with his medication, but his passing out spell continues to happen frequently. As his symptoms were becoming more frequent, he was brought to the [facility]. PAST MEDICAL HISTORY: Congestive heart failure, hypertension, depression, anxiety, history of stroke , endocarditis status post mitral valve replacement, chronic back pain, chronic narcotic dependence a nd history of seizure. PAST SURGICAL HISTORY: Significant for pacemaker, defibrillator placement, splenic laceration after a fall. SOCIAL HISTORY: He smokes on a daily basis. He lives close to his elderly father. He has a remote history of drug abuse. He denies alcohol use. CURRENT MEDICATIONS: Please review MAR. ALLERGIES: No known drug allergies. REVIEW OF SYSTEMS: As mentioned above in the HPI, otherwise negative. PHYSICAL EXAMINATION: VITAL SIGNS: Blood pressure 101/61, pulse of 83, temperature of 98.4, respirations of 16, O2 sats of 97% on room air. GENERAL: Well-developed, well-nourished male in no apparent distress. RESPIRATORY: Clear to auscultation bilaterally. CARDIOVASCULAR: Regular rate and rhythm. NEUROLOGICAL: Mental status: The patient is awake, alert, oriented x3. Speech and language: Fluen t speech. Cranial nerves: Pupils are 3 mm and reactive. Visual marks are intact. External muscle s are intact. No nystagmus is noted. Face is symmetric. Tongue and uvula midline. Motor exam show ed normal tone and bulk with a 5/5 strength in both upper and lower extremities. Sensory: Sensation is intact and symmetric. Deep tendon reflexes 2+ reflexes in both upper and lower extremities. Bab inski: Plantar responses flexion bilaterally. Coordination intact to [id number] and finger tapping bilaterally. LABORATORY DATA: Reviewed, which included CBC, BMP, CPK, troponin, CK-MB, urinalysis and urine drug screen, which are significant for hemoglobin 12.7, hematocrit 38.2, calcium 7.1. Urine drug screen w as positive for methamphetamines and benzodiazepines. IMAGING STUDIES: None. IMPRESSION: Recurrent seizures and recurrent passing out spells. Mr. Clark is a pleasant 52-year -old male with multiple medical problems who presented with the recurrent passing out spell s. These spells could be a generalized tonic clonic seizure. At this time, I would recommend obtain ing an EEG. I have increased the dose of the Keppra to 500 mg b.i.d. If he remains seizure free, he is okay to be discharged to home. He will follow up with my clinic in 4-6 weeks post-discharge. Thank you for your consultation.
[2017-09-05] MEDS: Morphine 5 MG/ML SYRINGE SLOW IVP PRN ×5 (03:09→21:28)
[2017-09-05] MEDS: Lorazepam 1 MG TAB PO PRN ×2 (04:19→20:22)
[2017-09-05] MEDS: HYDROcodone/Acetaminophen 5/325 mg Tablet PO PRN ×4 (05:45→15:42)
[2017-09-05] MEDS: Famotidine 20 MG TAB PO SCH ×2 (07:30→20:21)
[2017-09-05] MEDS: Enoxaparin Sodium 40 MG/0.4 ML SYRINGE SC SCH (07:30)
--- NOTE | 2017-09-05 09:56 | PRG ---
DATE OF SERVICE: 09/05/2017 SUBJECTIVE: Mr. Clark is mainly complaining of back pain. This is chronic. No chest pain or pre ssure noted. He did have an episode of non-sustained VT noted on the monitor. Again, Mr. Clark is recently seen for syncope and seizures. He states he has had seizures in the last 3 years after having a previous stroke. PHYSICAL EXAMINATION: VITAL SIGNS: Blood pressure 101/68, pulse 90, temperature 97.1. LUNGS: Clear to auscultation. CARDIAC: Regular rate and rhythm. ABDOMEN: Soft, nontender, nondistended. EXTREMITIES: No edema. IMPRESSION: 1. Syncope. 2. Seizure disorder. 3. Previous cerebrovascular accident. 4. Wide complex tachycardia. RECOMMENDATIONS: Mr. Clark does have a previous pacemaker in place. We will have it interrogated . I will consult with EP to assess for wide complex tachycardia and syncope versus seizure. Stress study has been ordered to assess for ischemia. Echo with Doppler is also pending.
--- NOTE | 2017-09-05 13:37 | NM ---
NUCLEAR MEDICINE CARDIAC MYOCARDIAL PERFUSION SPECT EJECTION FRACTION STUDY WALL MOTION CINE: HISTORY: 52-year-old male with chest pain. TECHNIQUE: Number of days: 1 Rest study: Tc99m sestamibi (Cardiolite) dose: 9.0 mCi Pharmacologic stress: adenosine dose: 31.9 mg Stress study: Tc99m sestamibi (Cardiolite) dose: 28.0 mCi FINDINGS: CARDIAC (MYOCARDIAL PERFUSION) SPECT There are no reversible myocardial perfusion defects. EJECTION FRACTION STUDY EF = 72% WALL MOTION CINE Normal. IMPRESSION: No evidence of reversible ischemia. FLORENTINO Galeana POS: ARMANI
[2017-09-05] MEDS: levETIRAcetam 500 MG TAB PO SCH ×2 (13:45→20:21)
[2017-09-05] MEDS ORDERED: ADENOSINE 60 MG/20 ML VIAL ONE (13:48)
--- NOTE | 2017-09-05 16:44 | PDOC.PN ---
- Subjective Encounter Start Date: 09/05/17 Encounter Start Time: 16:42 Pt seen for followup re: seizure. Denies any overnight seizures. Chest pain better. No nausea or vomiting. - Objective MAR Reviewed: Yes Vital Signs & Weight: Vital Signs (12 hours) Temp Pulse Resp BP Pulse Ox 09/05/17 15:17 97.8 F 89 20 111/71 96 09/05/17 12:20 97.3 F L 89 20 95/62 96 09/05/17 08:00 97.1 F L 90 20 09/05/17 07:25 97.1 F L 90 20 101/68 98 Weight Admit Weight 125 lb 12.8 oz Weight 125 lb 12.8 oz I&O: 09/04/17 09/05/17 09/06/17 06:59 06:59 06:59 Intake Total 510 790 Output Total 650 Balance -140 790 Result Diagrams: 09/04/17 00:39 09/04/17 00:39 EKG Reviewed by me: Yes (Tele: AV paced) Phys Exam - Physical Examination Frail HEENT: PERRLA, moist MMs, sclera anicteric, oral pharynx no lesions Neck: no nodes, no JVD, supple, full ROM Respiratory: no wheezing, no rales, no rhonchi, clear to auscultation bilateral Cardiovascular: RRR, no rub Gastrointestinal: soft, non-tender, no distention, positive bowel sounds Neurological: moves all 4 limbs Psychiatric: normal affect Skin: no rash Dx/Plan (1) Seizure Code(s): R56.9 - UNSPECIFIED CONVULSIONS Status: Acute (2) Chest pain Code(s): R07.9 - CHEST PAIN, UNSPECIFIED Status: Acute (3) Anxiety Code(s): F41.9 - ANXIETY DISORDER, UNSPECIFIED Status: Chronic (4) History of mitral valve replacement Code(s): Z95.2 - PRESENCE OF PROSTHETIC HEART VALVE Status: Chronic (5) Hypertension Code(s): I10 - ESSENTIAL (PRIMARY) HYPERTENSION Status: Chronic Qualifiers: Hypertension type: essential hypertension Qualified Code(s): I10 - Essential (primary) hypertension - Plan PT/OT, out of bed/ambulate * . Stress test normal. EEG pending. Pt will likely need placement in a LTC facility upon discharge. Review of Systems - Review of Systems Respiratory: negative: Cough, Dry, Shortness of Breath, Hemoptysis, SOB with Excertion, Pleuritic Pain, Sputum, Wheezing Cardiovascular: chest pain. negative: palpitations, orthopnea, paroxysmal nocturnal dyspnea, edema, light headedness Gastrointestinal: negative: Nausea, Vomiting, Abdominal Pain, Diarrhea, Constipation, Melena, Hematochezia Genitourinary: negative: Dysuria, Frequency, Incontinence, Hematuria, Retention , Other Neurological: Seizures - Medications/Allergies Allergies/Adverse Reactions: Allergies Allergy/AdvReac Type Severity Reaction Status Date / Time No Known Drug Allergies Allergy Verified 05/23/17 03:37 Medications: Current Medications Acetaminophen (Tylenol) 650 mg PO Q4H PRN PRN Reason: Headache/Fever or Pain Hydrocodone Bitart/Acetaminophen ([place] 5/325) 1 tab PO Q4H PRN PRN Reason: Moderate Pain (4-6) Hydrocodone Bitart/Acetaminophen ([place] 5/325) 2 tab PO Q4H PRN PRN Reason: Severe Pain (7-10) Last Admin: 09/05/17 15:42 Dose: 2 tab Al Hydroxide/Mg Hydroxide (Maalox) 30 ml PO Q6H PRN PRN Reason: Heartburn or Indigestion Benzonatate (Tessalon) 100 mg PO Q4H PRN PRN Reason: Cough Bisacodyl (Dulcolax) 10 mg PO DAILYPRN PRN PRN Reason: Constipation Bismuth Subsalicylate (Pepto Bismol) 2 tab PO Q1H PRN PRN Reason: Diarrhea/Loose Stools Calcium Carbonate (Tums) 1,000 mg PO Q4H PRN PRN Reason: Heartburn or Indigestion Clonidine (Catapres) 0.1 mg PO Q4H PRN PRN Reason: Systolic BP > 160 Enoxaparin Sodium (Lovenox) 40 mg SC 0900 [facility] Last Admin: 09/05/17 07:30 Dose: 40 mg Famotidine (Pepcid) 20 mg PO BID [facility] Last Admin: 09/05/17 07:30 Dose: 20 mg Guaifenesin (Robitussin Sf) 200 mg PO Q4H PRN PRN Reason: Cough Hydralazine HCl (Apresoline) 10 mg SLOW IVP Q4H PRN PRN Reason: Systolic BP > 180 Lactulose (Lactulose) 20 gm PO DAILYPRN PRN PRN Reason: Constipation Levetiracetam (Keppra) 500 mg PO BID [facility] Last Admin: 09/05/17 13:45 Dose: Not Given Loperamide HCl (Imodium) 2 mg PO PRN PRN PRN Reason: Diarrhea/Loose Stools Loratadine (Claritin) 10 mg PO DAILYPRN PRN PRN Reason: Sinus Symptoms Lorazepam (Ativan) 1 mg PO Q4H PRN PRN Reason: Anxiety/Agitation Last Admin: 09/05/17 04:19 Dose: 1 mg Magnesium Hydroxide (Milk Of Magnesium) 30 ml PO DAILYPRN PRN PRN Reason: Constipation Morphine Sulfate (Morphine) 4 mg SLOW IVP Q4H PRN PRN Reason: pain Last Admin: 09/05/17 12:30 Dose: 4 mg Nitroglycerin (Nitrostat) 0.4 mg SL Q5MIN PRN PRN Reason: Chest Pain Ondansetron HCl (Zofran) 4 mg IVP Q6H PRN PRN Reason: Nausea/Vomiting Last Admin: 09/04/17 16:20 Dose: 4 mg Senna (Senokot) 2 tab PO HSPRN PRN PRN Reason: Constipation Tramadol HCl (Ultram) 50 mg PO Q4H PRN PRN Reason: Moderate Pain (4-6) Last Admin: 09/04/17 16:17 Dose: 50 mg
--- NOTE | 2017-09-05 20:23 | CON ---
DATE OF CONSULTATION: 09/05/2017 CONSULTING PHYSICIAN: Cresencio Edmondson M.D. REASON FOR CONSULTATION: Nonsustained ventricular tachycardia. HISTORY OF PRESENT ILLNESS: Mr. Clark is a 52-year-old gentleman with a very complex history who is recently admitted to the hospital and presented with chest pain. He has been feeling poorly of la te suffering multiple seizures and prior to presenting to the emergency room, he had developed severe chest pain in his left chest. Axillary radiating down into his arm and back to his left shoulder bl mellissa. He underwent workup and had a stress test today, which was negative for reversible ischemia. C urrently, he denies any chest pain. Patient does report that he has had some similar episodes prior to presenting to the emergency room for this chest pain. He has also been falling at home more recen tly. He reports that he does occasionally feel like his heart is racing. The patient reports that he has continued to lose weight despite eating excessively. He has a longstanding history of depression wit h previous suicide attempt. PAST MEDICAL HISTORY: 1. History of mitral valve endocarditis, status post mitral valve replacement, on 10/21/2011 with a bioprosthetic valve. 2. Previous CVA, related secondary to endocarditis with residual balance issues and right-sided weak ness. 3. Multiple transient ischemic attack. 4. History of syncope in 05/2012, with fall and subsequent splenic laceration and T4 compression fra cture, contradicting oral anticoagulation therapy. 5. Third degree AV block. 6. Ventricular dyssynchrony. 7. 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 8. Chronic pain. 9. Severe depression with previous suicide attempt. PAST SURGICAL HISTORY: Implantation of pacemaker originally and patient had a dual chamber pacemaker in 10/2011, however, he presented with erosion or infection and in 05/2012, his pacemaker was explan emmanuel and upgrade to MINING MACHINERY ASSEMBLER pacemaker. ALLERGIES: No known drug allergies. FAMILY HISTORY: Denies sudden cardiac or premature coronary artery disease with onset before t he age of 56. SOCIAL HISTORY: Positive for continued tobacco habituation, positive for remote history of drug abu se. HOME MEDICATIONS: Aspirin, Plavix, Fentanyl patch, gabapentin, and Dilaudid. REVIEW OF SYSTEMS: Constitutional: Patient denies fevers, chills, night sweats, insomnia. Positive for fatigue and continued weight loss, that was unintentional. HEENT: Patient denies changes in vi sofía, hearing, and double vision. Cardiovascular: Negative for shortness of breath. Positive for r ecent chest pain which is currently resolved, negative for tachycardia, syncope or near syncope. Res piratory: Negative for chronic cough, hemoptysis or recent respiratory illness. GI: Denies nausea, vomiting, diarrhea, or blood in stool. Genitourinary: Patient denies frequency, hesitancy for diff iculty urinating. Hematologic: Patient denies any bleeding dyscrasias, easy bruising, or uncontroll ably bleeding. Neurologic: Patient denies any unilateral weakness, speech changes, vision changes, facial droop, or paresthesias. Musculoskeletal: Patient denies arthritis, myalgias, or arthralgias. Psychiatric: Positive for depression and anxiety. PHYSICAL EXAMINATION: GENERAL: Patient is cachectic male who appears chronically ill appearing. His speech is c lear. His affect mostly appropriate, but anxious. NEUROLOGIC: He is alert and oriented. HEENT: Sclerae anicteric. His mucous membranes are moist. He has very poor dentation. NECK: His neck is supple without lymphadenopathy or thyromegaly. Trachea is midline. There is no j ugular venous distention. LUNGS: Clear to auscultation without wheezes, crackles, or rhonchi. Good bilateral excursion, respi rations are even and nonlabored. CARDIOVASCULAR: His heart sounds are regularly regular, with a slight systolic murmur along the lowe r left sternal border. EXTREMITIES: Warm and dry to touch without clubbing, cyanosis, or edema. ABDOMEN: Benign. There is no hepatosplenomegaly and hepatojugular reflux is negative. His device i s palpable at the right infraclavicular fossa. SKIN: Very thin over the device implant and is high risk for erosion, however, no open areas or eros ion is noted on assessment. DATABASE: Serial cardiac enzymes were negative. Cardiac stress test was negative for reversible isc hemia, showed normal wall motion and LVEF 72%. EKG was reviewed. Patient did have nonsustained vent ricular tachycardia documented, currently in normal sinus rhythm with demand pacing. DEVICE INTERROGATION: The patient has a [employer] MINING MACHINERY ASSEMBLER-P in-situ. Date of implant is . Battery voltage is 2.95 volts, with estimated longevity of 2 years, the atrial lead is Medtroni c [id number], lead impedance is 399 ohms. Capture threshold is 0.625 volts at 0.4 milliseconds. RV lead i s Medtronic 476, lead impedance is 513 ohms. Capture threshold is 1.125 volts. at 0.4 milliseconds. Lead impedance is 608 ohms. Mode is DDDR. Interrogation did reveal there were 4 episodes of nonsus tained VT. There is no documented atrial fibrillation or atrial flutter. The OptiVol fluid index trevino s fluctuated greatly over the past year, but currently is below threshold, patient is atrially paced 56% and biventricular paced 99.7%, captured VT episodes are very brief, less than 5 beats in duration and broke spontaneously. RECENT LABORATORY DATA: Hematology from 09/04/2017, WBC 6.5, hemoglobin 12.7, hematocrit 38.2, plate lets 182, chemistry from 122. Sodium 138, potassium 3.1, chloride 112, carbon dioxide 18, BUN 18, cr eatinine 0.6, calcium 7.1 and toxicology screen is negative except for levetiracetam. Chest x-ray do ne 09/03/2017. No acute findings. Pacemaker leads are noted and prosthetic aortic valve. IMPRESSION: 1. Nonsustained ventricular tachycardia without correlation to symptoms. 2. Chest pain with negative stress test on 09/05/2017. 3. History of complete AV block, and ventricular dyssynchrony with subsequent biventricular pacemake r placement in 05/2012. 4. MINING MACHINERY ASSEMBLER-P with adequate functioning. 5. History of mitral valve endocarditis with subsequent mitral valve replacement, on 10/21/2011. 6. History of systolic congestive heart failure, which is now recovered with an LVEF of 72%. 7. changes, possibly orthostatic. 8. History of multiple cerebrovascular accident, secondary to mitral valve endocarditis. 9. Hypokalemia. RECOMMENDATIONS: At this point, upgrading to an ICD is not clinically indicated. Recommendation is for beta oliver therapy or possibly Sotalol to find patient's kidney function, as well as electrolyt e correction. We will continue to follow the patient. Thank you for allowing us to participate in the care of this patient. Dictated by Latonya Gooden NP
[2017-09-06] MEDS: Lorazepam 1 MG TAB PO PRN ×3 (01:35→09:50)
[2017-09-06] MEDS: Morphine 5 MG/ML SYRINGE SLOW IVP PRN ×6 (01:35→22:49)
[2017-09-06 08:05] LABS: Anion Gap 12 mmol/L (10-20); BUN (Urea Nitrogen) 22 mg/dL (8.4-25.7); Calc. Creatinine Clearance 95 mL/min (70-130); Calcium 9.8 mg/dL (7.8-10.44); Carbon Dioxide 27 mmol/L (22-29); Chloride 102 mmol/L (98-107); Estimated GFR-MDRD Greater than 90; Glucose 96 mg/dL (70-105); Potassium 4.8 mmol/L (3.5-5.1); Sodium 136 mmol/L (136-145)
[2017-09-06] MEDS: Famotidine 20 MG TAB PO SCH ×2 (08:37→20:05)
[2017-09-06] MEDS: levETIRAcetam 500 MG TAB PO SCH ×2 (08:37→20:05)
[2017-09-06] MEDS: Enoxaparin Sodium 40 MG/0.4 ML SYRINGE SC SCH (08:38)
--- NOTE | 2017-09-06 09:14 | PRG ---
DATE OF SERVICE: 09/06/2017 SUBJECTIVE: Mr. Clark's status is stable. No chest pain or pressure noted. His recent stress st udy was negative for ischemia. OBJECTIVE: VITAL SIGNS: Blood pressure 115/70, pulse 91, temperature 98.3. LUNGS: Clear to auscultation. HEART: Regular rate and rhythm. ABDOMEN: Soft, nontender, nondistended. EXTREMITIES: No edema. LABORATORY DATA: Potassium is 4.8. Telemetry monitoring, no further dysrhythmias. IMPRESSION: 1. Wide complex tachycardia. 2. Mitral valve replacement. 3. Hypokalemia. RECOMMENDATIONS: Mr. Clark is hypokalemic likely a precipitating cause to his wide complex tachyc ardia. His LVEF is normal. At this point, would continue conservative therapy. From a CV standpoin t, I have no further recommendations.
--- NOTE | 2017-09-06 10:21 | PRG ---
DATE OF SERVICE: 09/06/2017 SUBJECTIVE: Mr. Clark is doing fair. He seems to be depressed and has back pain, has no cardiac symptoms are noted. OBJECTIVE: VITAL SIGNS: Blood pressure 112/74, heart rate 80, respirations 14, temperature 97.6 degrees Fahrenh eit. GENERAL: Alert and oriented man in no apparent distress. NECK: Supple. Jugular veins not distended. CHEST: Coarse, no crackles. CARDIOVASCULAR: Heart sounds are regular. No murmur or gallop. ABDOMEN: Benign. Bowel sounds positive. EXTREMITIES: Extremities without edema, clubbing or cyanosis. LABORATORY DATA: No major abnormalities, hemoglobin decreased to 12.7. Telemetry strips reveal sinus rhythm with ventricular pacing. ASSESSMENT AND PLAN: Mr. Clark is a 52-year-old man with prior history of congestive heart failur e and cardiomyopathy, now with normalized LV function. He has a well-functioning BI-V ICD in place. Hence, history of AV block. He has mitral valve replacement in the past. He has had a little wide complex tachycardia on pacemaker interrogation, but not corresponding to his syncopal spells. The pa cemaker is functioning adequately. He had some hypokalemia. At this point, I felt that his normaliz ing left ventricular function likely no correlation to his nonsustained arrhythmias, ICD upgrade is l ikely not necessary. Normalizing potassium levels, potentially adding beta blockers and improving h is hydration and nutritional status likely would be beneficial. Thank you for allowing me to participate in the care of your patient.
--- NOTE | 2017-09-06 12:45 | PDOC.PN ---
- Subjective Encounter Start Date: 09/06/17 Encounter Start Time: 07:40 Pt seen for followup re: chest pain. Reports on and off pain, but better. No nausea or vomiting. - Objective MAR Reviewed: Yes Vital Signs & Weight: Vital Signs (12 hours) Temp Pulse Resp BP BP Pulse Ox 09/06/17 11:51 97.5 F L 85 18 104/65 98 09/06/17 08:00 97.6 F 82 14 112/74 99 09/06/17 03:52 98.3 F 91 18 115/70 98 Weight Admit Weight 125 lb 12.8 oz Weight 125 lb 12.8 oz I&O: 09/05/17 09/06/17 09/07/17 06:59 06:59 06:59 Intake Total 790 1090 Balance 790 1090 Result Diagrams: 09/04/17 00:39 09/06/17 07:41 EKG Reviewed by me: Yes (Tele: AV paced) Phys Exam - Physical Examination Frail HEENT: moist MMs Neck: supple Respiratory: clear to auscultation bilateral Cardiovascular: RRR Gastrointestinal: soft Neurological: moves all 4 limbs Psychiatric: normal affect Skin: no rash Dx/Plan (1) Chest pain Code(s): R07.9 - CHEST PAIN, UNSPECIFIED Status: Acute (2) Seizure Code(s): R56.9 - UNSPECIFIED CONVULSIONS Status: Acute (3) Anxiety Code(s): F41.9 - ANXIETY DISORDER, UNSPECIFIED Status: Chronic (4) History of mitral valve replacement Code(s): Z95.2 - PRESENCE OF PROSTHETIC HEART VALVE Status: Chronic (5) Hypertension Code(s): I10 - ESSENTIAL (PRIMARY) HYPERTENSION Status: Chronic Qualifiers: Hypertension type: essential hypertension Qualified Code(s): I10 - Essential (primary) hypertension - Plan * . Stress test result noted. Appreciate cardiology, EP and neurology services input. Pt needs discharge planning, likely placement in LTC. Review of Systems - Review of Systems Respiratory: negative: Cough, Dry, Shortness of Breath, Hemoptysis, SOB with Excertion, Pleuritic Pain, Sputum, Wheezing Cardiovascular: negative: chest pain, palpitations, orthopnea, paroxysmal nocturnal dyspnea, edema, light headedness - Medications/Allergies Allergies/Adverse Reactions: Allergies Allergy/AdvReac Type Severity Reaction Status Date / Time No Known Drug Allergies Allergy Verified 05/23/17 03:37 Medications: Current Medications Acetaminophen (Tylenol) 650 mg PO Q4H PRN PRN Reason: Headache/Fever or Pain Hydrocodone Bitart/Acetaminophen ([place] 5/325) 1 tab PO Q4H PRN PRN Reason: Moderate Pain (4-6) Hydrocodone Bitart/Acetaminophen ([place] 5/325) 2 tab PO Q4H PRN PRN Reason: Severe Pain (7-10) Last Admin: 09/05/17 15:42 Dose: 2 tab Al Hydroxide/Mg Hydroxide (Maalox) 30 ml PO Q6H PRN PRN Reason: Heartburn or Indigestion Benzonatate (Tessalon) 100 mg PO Q4H PRN PRN Reason: Cough Bisacodyl (Dulcolax) 10 mg PO DAILYPRN PRN PRN Reason: Constipation Bismuth Subsalicylate (Pepto Bismol) 2 tab PO Q1H PRN PRN Reason: Diarrhea/Loose Stools Calcium Carbonate (Tums) 1,000 mg PO Q4H PRN PRN Reason: Heartburn or Indigestion Clonidine (Catapres) 0.1 mg PO Q4H PRN PRN Reason: Systolic BP > 160 Enoxaparin Sodium (Lovenox) 40 mg SC 0900 [facility] Last Admin: 09/06/17 08:38 Dose: 40 mg Famotidine (Pepcid) 20 mg PO BID [facility] Last Admin: 09/06/17 08:37 Dose: 20 mg Guaifenesin (Robitussin Sf) 200 mg PO Q4H PRN PRN Reason: Cough Hydralazine HCl (Apresoline) 10 mg SLOW IVP Q4H PRN PRN Reason: Systolic BP > 180 Lactulose (Lactulose) 20 gm PO DAILYPRN PRN PRN Reason: Constipation Levetiracetam (Keppra) 500 mg PO BID [facility] Last Admin: 09/06/17 08:37 Dose: 500 mg Loperamide HCl (Imodium) 2 mg PO PRN PRN PRN Reason: Diarrhea/Loose Stools Loratadine (Claritin) 10 mg PO DAILYPRN PRN PRN Reason: Sinus Symptoms Lorazepam (Ativan) 1 mg PO Q4H PRN PRN Reason: Anxiety/Agitation Last Admin: 09/06/17 09:50 Dose: 1 mg Magnesium Hydroxide (Milk Of Magnesium) 30 ml PO DAILYPRN PRN PRN Reason: Constipation Morphine Sulfate (Morphine) 4 mg SLOW IVP Q4H PRN PRN Reason: pain Last Admin: 09/06/17 09:50 Dose: 4 mg Nitroglycerin (Nitrostat) 0.4 mg SL Q5MIN PRN PRN Reason: Chest Pain Ondansetron HCl (Zofran) 4 mg IVP Q6H PRN PRN Reason: Nausea/Vomiting Last Admin: 09/04/17 16:20 Dose: 4 mg Senna (Senokot) 2 tab PO HSPRN PRN PRN Reason: Constipation Tramadol HCl (Ultram) 50 mg PO Q4H PRN PRN Reason: Moderate Pain (4-6) Last Admin: 09/04/17 16:17 Dose: 50 mg
[2017-09-06] MEDS ORDERED: HYDROmorphone 2 MG TAB PO PRN (12:55)
[2017-09-06] MEDS: Diazepam 5 MG TAB PO SCH (20:05)
[2017-09-06] MEDS ORDERED: traZODone HCl 50 MG TAB PO SCH (21:00)
[2017-09-06] MEDS ORDERED: levETIRAcetam 500 MG TAB PO SCH (21:00)
[2017-09-07] MEDS: Morphine 5 MG/ML SYRINGE SLOW IVP PRN (04:50)
[2017-09-07] MEDS: Famotidine 20 MG TAB PO SCH (08:06)
[2017-09-07] MEDS: Enoxaparin Sodium 40 MG/0.4 ML SYRINGE SC SCH (08:06)
[2017-09-07] MEDS: levETIRAcetam 500 MG TAB PO SCH (08:06)
[2017-09-07] MEDS ORDERED: Morphine 5 MG/ML SYRINGE SLOW IVP PRN (08:52)
[2017-09-07] MEDS ORDERED: Aspirin 325 MG TAB PO SCH (09:00)
[2017-09-07] MEDS ORDERED: Clopidogrel Bisulfate 75 MG TAB PO SCH (09:00)
[2017-09-07] MEDS ORDERED: Atorvastatin Calcium 10 MG TAB PO SCH (09:00)
[2017-09-07 09:59] VITALS: BP 99/73; TEMP 97.3
[2017-09-07] MEDS: Diazepam 5 MG TAB PO SCH (10:00)
[2017-09-07 10:10] LABS: Anion Gap 14 mmol/L (10-20); BUN (Urea Nitrogen) 22 mg/dL (8.4-25.7); Calc. Creatinine Clearance 78 mL/min (70-130); Calcium 9.7 mg/dL (7.8-10.44); Carbon Dioxide 22 mmol/L (22-29); Chloride 103 mmol/L (98-107); Estimated GFR-MDRD Greater than 90; Glucose 153 mg/dL (70-105); Magnesium 2.6 mg/dL (1.6-2.6); Potassium 4.4 mmol/L (3.5-5.1); Sodium 135 mmol/L (136-145)
[2017-09-07 13:20] VITALS: BMI 16.3
--- NOTE | 2017-09-07 13:20 | PDOC.PN ---
- Subjective Encounter Start Date: 09/07/17 Encounter Start Time: 13:18 Subjective: refusing to go to a NH.c/o bad back pain -: no overnight events - Objective MAR Reviewed: Yes Vital Signs & Weight: Vital Signs (12 hours) Temp Pulse Resp BP BP Pulse Ox 09/07/17 09:59 97.3 F L 100 18 99/73 97 09/07/17 08:07 115/70 09/07/17 08:00 97.4 F L 104 H 18 09/07/17 07:28 97.4 F L 104 H 18 94/68 97 09/07/17 04:50 98.0 F 98 14 103/72 97 Weight Admit Weight 125 lb 12.8 oz Weight 117 lb I&O: 09/06/17 09/07/17 09/08/17 06:59 06:59 06:59 Intake Total 1090 1970 251 Balance 1090 1970 251 Result Diagrams: 09/04/17 00:39 09/07/17 09:36 Additional Labs: Laboratory Tests 09/03/17 09/03/17 09/04/17 18:38 21:20 00:01 Troponin I 0.014 0.016 U Methamphetamines Scrn Detected H U Benzodiazepines Scrn Detected H 09/04/17 00:39 Troponin I 0.014 U Methamphetamines Scrn U Benzodiazepines Scrn Phys Exam - Physical Examination Constitutional: NAD cachectic HEENT: PERRLA, moist MMs, sclera anicteric, TM's clear, oral pharynx no lesions , 2+ tonsils Neck: no JVD Respiratory: no wheezing, no rales, no rhonchi, clear to auscultation bilateral Cardiovascular: RRR, no significant murmur Gastrointestinal: soft, non-tender, no distention, positive bowel sounds Musculoskeletal: no edema, pulses present Neurological: non-focal, normal sensation, moves all 4 limbs Psychiatric: normal affect, A&O x 3 Skin: no rash Dx/Plan (1) Breakthrough seizure Code(s): G40.919 - EPILEPSY, UNSP, INTRACTABLE, WITHOUT STATUS EPILEPTICUS Status: Acute Comment: Stable. On keppra BID. EEG NL.discussed with neurology (2) Severe malnutrition Code(s): E43 - UNSPECIFIED SEVERE PROTEIN-CALORIE MALNUTRITION Status: Chronic (3) Methamphetamine abuse Code(s): F15.10 - OTHER STIMULANT ABUSE, UNCOMPLICATED Status: Acute (4) Chest pain Code(s): R07.9 - CHEST PAIN, UNSPECIFIED Status: Resolved (5) H/O endocarditis Code(s): Z86.79 - PERSONAL HISTORY OF OTHER DISEASES OF THE CIRCULATORY SYSTEM Status: Chronic (6) History of mitral valve replacement Code(s): Z95.2 - PRESENCE OF PROSTHETIC HEART VALVE Status: Chronic (7) Hypertension Code(s): I10 - ESSENTIAL (PRIMARY) HYPERTENSION Status: Chronic Qualifiers: Hypertension type: essential hypertension Qualified Code(s): I10 - Essential (primary) hypertension - 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 -: ? safety to return home d/t same & ongoing drug abuse -: will have Speech do a congnitive eval. * .If pt qualifies ,will DC to [place],otherwise home as per his wishes. * hemodynamically stable Review of Systems - Review of Systems Constitutional: negative: fever, chills, sweats, weakness, malaise, other Respiratory: negative: Cough, Dry, Shortness of Breath, Hemoptysis, SOB with Excertion, Pleuritic Pain, Sputum, Wheezing Cardiovascular: negative: chest pain, palpitations, orthopnea, paroxysmal nocturnal dyspnea, edema, light headedness, other Gastrointestinal: negative: Nausea, Vomiting, Abdominal Pain, Diarrhea, Constipation, Melena, Hematochezia, Other Genitourinary: negative: Dysuria, Frequency, Incontinence, Hematuria, Retention , Other Musculoskeletal: negative: Neck Pain, Shoulder Pain, Arm Pain, Back Pain, Hand Pain, Leg Pain, Foot Pain, Other Neurological: negative: Weakness, Numbness, Incoordination, Change in Speech, Confusion, Seizures, Other - Medications/Allergies Allergies/Adverse Reactions: Allergies Allergy/AdvReac Type Severity Reaction Status Date / Time No Known Drug Allergies Allergy Verified 05/23/17 03:37 Medications: Current Medications Acetaminophen (Tylenol) 650 mg PO Q4H PRN PRN Reason: Headache/Fever or Pain Hydrocodone Bitart/Acetaminophen (Banner 5/325) 1 tab PO Q4H PRN PRN Reason: Moderate Pain (4-6) Last Admin: 09/07/17 08:14 Dose: 1 tab Hydrocodone Bitart/Acetaminophen (Banner 5/325) 2 tab PO Q4H PRN PRN Reason: Severe Pain (7-10) Last Admin: 09/05/17 15:42 Dose: 2 tab Al Hydroxide/Mg Hydroxide (Maalox) 30 ml PO Q6H PRN PRN Reason: Heartburn or Indigestion Aspirin (Aspirin) 325 mg PO DAILY REPLACED BY [facility] Last Admin: 09/07/17 08:07 Dose: 325 mg Atorvastatin Calcium (Lipitor) 10 mg PO DAILY REPLACED BY [facility] Last Admin: 09/07/17 08:06 Dose: 10 mg Benzonatate (Tessalon) 100 mg PO Q4H PRN PRN Reason: Cough Bisacodyl (Dulcolax) 10 mg PO DAILYPRN PRN PRN Reason: Constipation Bismuth Subsalicylate (Pepto Bismol) 2 tab PO Q1H PRN PRN Reason: Diarrhea/Loose Stools Calcium Carbonate (Tums) 1,000 mg PO Q4H PRN PRN Reason: Heartburn or Indigestion Clonidine (Catapres) 0.1 mg PO Q4H PRN PRN Reason: Systolic BP > 160 Clopidogrel Bisulfate (Plavix) 75 mg PO DAILY REPLACED BY [facility] Last Admin: 09/07/17 08:06 Dose: 75 mg Diazepam (Valium) 5 mg PO BID REPLACED BY [facility] Last Admin: 09/07/17 10:00 Dose: 5 mg Enoxaparin Sodium (Lovenox) 40 mg SC 0900 REPLACED BY [facility] Last Admin: 09/07/17 08:06 Dose: 40 mg Famotidine (Pepcid) 20 mg PO BID REPLACED BY [facility] Last Admin: 09/07/17 08:06 Dose: 20 mg Guaifenesin (Robitussin Sf) 200 mg PO Q4H PRN PRN Reason: Cough Hydralazine HCl (Apresoline) 10 mg SLOW IVP Q4H PRN PRN Reason: Systolic BP > 180 Lactulose (Lactulose) 20 gm PO DAILYPRN PRN PRN Reason: Constipation Levetiracetam (Keppra) 500 mg PO BID REPLACED BY [facility] Last Admin: 09/07/17 08:06 Dose: 500 mg Loperamide HCl (Imodium) 2 mg PO PRN PRN PRN Reason: Diarrhea/Loose Stools Loratadine (Claritin) 10 mg PO DAILYPRN PRN PRN Reason: Sinus Symptoms Magnesium Hydroxide (Milk Of Magnesium) 30 ml PO DAILYPRN PRN PRN Reason: Constipation Morphine Sulfate (Morphine) 4 mg SLOW IVP Q6H PRN PRN Reason: Pain Last Admin: 09/07/17 11:57 Dose: 4 mg Nitroglycerin (Nitrostat) 0.4 mg SL Q5MIN PRN PRN Reason: Chest Pain Ondansetron HCl (Zofran) 4 mg IVP Q6H PRN PRN Reason: Nausea/Vomiting Last Admin: 09/04/17 16:20 Dose: 4 mg Pantoprazole Sodium (Protonix) 40 mg PO 2100 REPLACED BY [facility] Senna (Senokot) 2 tab PO HSPRN PRN PRN Reason: Constipation Sodium Chloride (Flush - Normal Saline) 10 ml IVF Q12HR REPLACED BY [facility] Last Admin: 09/07/17 10:02 Dose: 10 ml Sodium Chloride (Flush - Normal Saline) 10 ml IVF PRN PRN PRN Reason: Saline Flush Tramadol HCl (Ultram) 50 mg PO Q4H PRN PRN Reason: Moderate Pain (4-6) Last Admin: 09/04/17 16:17 Dose: 50 mg Trazodone HCl (Desyrel) 100 mg PO HS REPLACED BY [facility] Last Admin: 09/07/17 00:47 Dose: 100 mg Venlafaxine HCl (Effexor) 75 mg PO DAILY REPLACED BY [facility] Last Admin: 09/07/17 08:15 Dose: 75 mg
--- NOTE | 2017-09-07 18:26 | PRG ---
DATE OF SERVICE: 09/07/2017 SUBJECTIVE: Mr. Clark at our [facility] followup. He seems to be doing fair, althoug h he still has some back pain, would like to get off the narcotic pain medications. He denies palpit ations or loss of consciousness. OBJECTIVE: VITAL SIGNS: Blood pressure is 99/73, heart rate 100, respirations 18, temperature 97.3 degrees Fahr enheit. GENERAL: Alert and oriented man in no apparent distress. NECK: Supple. Jugular veins not distended. CHEST: Coarse without crackles. CARDIOVASCULAR: Heart sounds are regular to rate and rhythm, somewhat tachycardic. No murmur or gal lop. Right subclavian pacemaker insertion site has healed well, although with minimal overlying fat tissue. DATABASE: Telemetry strips reveal sinus rhythm with ventricular pacing. No further ventricular tach ycardia. LABORATORY DATA: Potassium is 4.4 normalized. ASSESSMENT AND PLAN: Mr. Clark is a 52-year-old man with history of mechanical mitral valve, who also has a BiV pacemaker in place. He had a nonsustained ventricular tachycardia, but preserved LV f unction and no ischemia on stress test. This was in the setting of low potassium. At this point, we continue observation. Consider beta oliver therapy if blood pressure allows, keep potassium level if possible; hence his EF normalized, I think his prognosis is reasonably good. At this point, I wou ld prefer not to proceed with the ICD upgrade. Routine followup in the office is requested.
--- NOTE | 2017-09-08 01:25 | DIS ---
DATE OF ADMISSION: 09/03/2017 DATE OF DISCHARGE: 09/07/2017 DISCHARGE DISPOSITION: The patient left against medical advice. DISCHARGE DIAGNOSES: 1. Chest pain, atypical. 2. Nonsustained wide complex ventricular tachycardia. 3. Breakthrough seizures. 4. Methamphetamine abuse. 5. History of seizure disorder. 6. History of psychiatric illness with no evidence of current suicidal or homicidal ideations. 7. Severe malnutrition. 8. History of infective endocarditis, status post mitral valve replacement. 9. Hypertension. DISCHARGE MEDICATIONS: The patient was not given any new prescriptions as he left AMA. Home medicat ions prior to admission as follows: Trazodone 100 mg daily, Keppra 500 mg p.o. b.i.d., venlafaxine 7 5 mg daily, ramipril 2.5 mg daily, Protonix 40 mg daily, Dilaudid every 4 hours as needed, diazepam 5 mg p.o. b.i.d., Plavix 75 mg daily, atorvastatin 10 mg daily, and aspirin 325 mg daily. PROCEDURES DONE IN THE HOSPITAL: Include; 1. Transthoracic echocardiogram, which shows EF of 55% to 60% with normal functioning mitral valve i n position. 2. Nuclear medicine stress test, which is unremarkable. No evidence to suggest ischemia or scar. E jection fraction 72%. 3. EEG. Results are not available to me at this time, but reportedly they are within normal limit. This is as per my discussion with the neurologist. CONSULTATIONS INHOUSE: Include; 1. Neurology, Dr. Ynes Sierra. 2. Cardiology, Dr. Edmondson. 3. Electrophysiology, Dr. Garcia. PRIMARY CARE PHYSICIAN: Dr. Romero. HISTORY OF PRESENTING ILLNESS: Mr. Clark is a 52-year-old male with known history of seizure diso rder and significant psychiatric illness with history of suicidal ideation as well as infected endoca rditis and CVA, who presented to the emergency room for complaints of chest pain and seizures. Nathen hummel see admission history and physical for further details regarding presentation dictated by myself. Upon presentation, he was hemodynamically stable. His EKG showed paced rhythm. He was admitted for further evaluation. His cardiac enzymes were normal. HOSPITAL COURSE: The patient was restarted on his home medications and an echocardiogram was obtaine d. It was essentially unremarkable. Cardiology was consulted given his extensive cardiac history. The patient also has a biventricular pacemaker, which was interrogated and did not show any significa nt abnormality. He did have some wide complex tachycardia on telemetry monitoring for which Cardiolo gy recommended consultation with Electrophysiology. Dr. Garcia the patient and at this time there was no indication to upgrade to AICD as he was rather asymptomatic and his wide complex tachycardia resul t. With regards to his seizure history, it is unclear whether he is taking his medications or not. The patient did tell me that he takes Keppra twice a day. Nevertheless, he was seen by Dr. Sierra from [facility] and restarted on the same dose. His Keppra level was around 3. EEG was done, whic h was reportedly negative. The patient was hemodynamically stable and the question was for the safe discharge. His dad takes ca re of him and we [facility] to [facility], but the patient did not want to go. At t his time, he is awake, alert, oriented x3 and seems to be able to make his own decisions. However, t here is always a question of memory issues ongoing as noticed by the nurses. Speech consult was put in for cognitive eval, but the patient unfortunately left AM prior to that. I discussed his care wi th him prior to him leaving AM and he did not heart to our advice. He left the floor and took out h is own IV and monitor. Nursing staff found him outside the hospital, waiting for his father. He has signed the AMA form for us at this time. As per my prior discussions with him, I instructed him to follow up with his primary care physician and referral was made to the pain medicine doctor, but the patient did not receive any discharge paperwork. I have instructed him that with the chronic narcoti c use, he remains high risk for seizure disorder and methamphetamine abuse, counseling was also provi ded prior to him leaving [facility]. He was seen and examined prior to him leaving. Please see hospitalist's progress note from today's d ate for further details including [id number] interaction. This case was discussed with adult protective caseworker and at this time it seemed like the best plan would be to g et APS involved for self-neglect. This will be followed as an outpatient basis. At this time, I can not ascertain if the patient is not capable of making his own decisions. On my interview with him tw jaime, he seems to be competent to make his own decisions. Total time spent in the discharge of this patient 32 minutes.
--- NOTE | 2017-09-16 14:51 | EKG ---
Test Reason : CP Blood Pressure : / mmHG Vent. Rate : 083 BPM Atrial Rate : 083 BPM P-R Int : 176 ms QRS Dur : 142 ms QT Int : 440 ms P-R-T Axes : 061 248 070 degrees QTc Int : 517 ms AV dual-paced rhythm Abnormal ECG Confirmed by ALIYAH BENAVIDEZ DO ([id number]), graphic editor ANNA CORONA ([id number]) on 09/16/2017 2:51:13 PM Referred By: Confirmed By:ALIYAH BENAVIDEZ DO
--- NOTE | 2017-10-10 13:24 | STRESS ---
Acquisition Time: 2017-09-05 11:03:27 Total Exercise Time: 00:04:00 Test Indications: CHEST PAIN Medications: Protocol: ADENOSINE Max HR: 083 BPM 49% of Pred: 169 BPM Max BP: 116/064 mmHG Max Work Load: 1.0 METS THE PATIENT WAS INJECTED WITH ADENOSINE. HE DID NOT DEVELOP CHEST PAIN. THE PATIENT HAD A PACED RHYTHM. AWAIT NUCLEAR IMAGES FOR DEFINITIVE DIAGNOSIS. Confirmed by TC FARFAN ([id number]), web content editor SALVATORE CONN ([id number]) on 10/10/2017 1:23:46 PM Referred By: MD Cruz RAMAN Confirmed By:TC FARFAN
== END 2017-09-07 15:30 | disposition left against medical advice (07) ==
LOC: ERS 17:38 → ERHOLD 19:16 → 2SW 23:12
PROVIDERS: ADMIT Internal Medicine; ATTEND Internal Medicine
DX: R07.89 Other chest pain (principal); I47.2 Ventricular tachycardia; F15.10 Other stimulant abuse, uncomplicated; G40.909 Epilepsy, unspecified, not intractable, without status epilepticus; F32.9 Major depressive disorder, single episode, unspecified; M54.9 Dorsalgia, unspecified; G89.29 Other chronic pain; H54.62 Unqualified visual loss, left eye, normal vision right eye; F41.9 Anxiety disorder, unspecified; R55 Syncope and collapse; I44.2 Atrioventricular block, complete; I11.0 Hypertensive heart disease with heart failure; I50.20 Unspecified systolic (congestive) heart failure; E87.6 Hypokalemia; I42.9 Cardiomyopathy, unspecified; F17.210 Nicotine dependence, cigarettes, uncomplicated; E43 Unspecified severe protein-calorie malnutrition; Z53.21 Procedure and treatment not carried out due to patient leaving prior to being seen by health care provider; Z68.1 Body mass index [BMI] 19.9 or less, adult; Z79.02 Long term (current) use of antithrombotics/antiplatelets; Z79.82 Long term (current) use of aspirin; Z79.899 Other long term (current) drug therapy; Z95.2 Presence of prosthetic heart valve; Z95.810 Presence of automatic (implantable) cardiac defibrillator; Z98.890 Other specified postprocedural states; Z91.5 Personal history of self-harm; Z86.73 Personal history of transient ischemic attack (TIA), and cerebral infarction without residual deficits; Z86.59 Personal history of other mental and behavioral disorders
CPT/HCPCS: 36415; 71045; 78452; 80048; 80177; 80306; 81003; 82550; 82553; 83735; 84484; 85025; 85379; 90471; 90732; 93005; 93017; 93306; 95816; 95819; 96365; 96366; 96372; 96374; 96375; 96376; J2270; A4216; A9500; G0009; G0378; G8978-GP-CK; G8979-GP-CJ; G8987-GO-CJ; G8988-GO-CI; J0153; J1650; J1885; J1953; J2405; J3010; J3480; J7050

== ENCOUNTER 2017-12-01 12:06 | Inpatient (IN) | payer OTHER ==
[2017-12-01] MEDS ORDERED: Norepinephrine 8 MG/0.9% NS 0 ML ONE (12:10)
[2017-12-01] MEDS ORDERED: Norepinephrine 8 MG/0.9% NS 250 ML ONE (12:16)
[2017-12-01 12:23] LABS: Actual Bicarbonate (HCO3a) 17.6 mEq/L (22-26); Base Excess (BEa) -9.6 mEq/L (0 (+/-) 2.5); CO2 Tension 44.4 mmHg (35.0-45.0); pH, Arterial 7.22 (7.35-7.45)
[2017-12-01 12:24] LABS: Hemoglobin (Hb) 13.8 g/dL (14.0-18.0)
[2017-12-01 12:25] LABS: Analyzer IN Cardio ER; Puncture Site LRA
[2017-12-01 12:34] LABS: #Basophils 0.1 thou/uL (0.0-0.2); #Lymphocytes 1.3 thou/uL (1.20-3.40); #Monocytes 2.2 thou/uL (0.11-0.59); #Neutrophils 12.5 thou/uL (1.40-6.50); %Basophils 0.4 % (0.0-1.0); %Eosinophils 0.2 % (0.0-10.0); %Lymphocytes 8.1 % (21.0-51.0); %Monocytes 13.8 % (0.0-10.0); %Neutrophils 77.6 % (42.0-75.0); Hemoglobin 14.7 g/dL (14.0-18.0); Mean Corpuscular HGB CONC 33.2 g/dL (32.0-36.0); Mean Corpuscular Volume 99.5 fl (80.0-94.0); Mean Platelet Volume 7.1 fL (7.4-10.4); Platelet Count 214 thou/uL (130-400); RBC Distribution Width 13.2 % (11.5-14.5); Red Blood Cell (RBC) Count 4.46 mill/uL (4.70-6.10); White Blood Cell (WBC) Count 16.1 thou/uL (4.8-10.8)
[2017-12-01] MEDS ORDERED: fentaNYL Citrate/PF 2,000 MCG in Sodium Chloride 0.9% 60 ML IV SCH ×2 (12:43→14:47)
[2017-12-01 12:50] LABS: Bilirubin Negative (Negative); Blood, Urine Moderate (Negative); Clarity CLOUDY (Clear); Glucose, Urine (Dipstick) Negative (Negative); Leukocyte Negative (Negative); Nitrite Negative (Negative); Protein, Urine (Dipstick) 100 mg/dL (Neg-Trace); Specific Gravity, Urine 1.018 (1.002-1.036)
[2017-12-01 12:52] LABS: Acetaminophen Less than 6.0 mcg/mL (10.0-30.0); Alcohol Less than 10 mg/dL (Less than 10); Salicylate Less than 8.0 mg/dL (15.0-30.0)
[2017-12-01 12:53] LABS: Troponin I 0.159 ng/mL (< 0.028)
[2017-12-01 12:53] LABS: Bacteria/HPF None Seen HPF (None Seen)
[2017-12-01 12:54] LABS: ALT (SGPT) 43 U/L (8-55); AST (SGOT) 57 U/L (5-34); Albumin 3.6 g/dL (3.5-5.0); Alcohol Less than 10 mg/dL (Less than 10); Alkaline Phosphatase 65 U/L (40-150); Anion Gap 18 mmol/L (10-20); BUN (Urea Nitrogen) 28 mg/dL (8.4-25.7); Bilirubin, Total 0.3 mg/dL (0.2-1.2); CK (CPK) 1376 U/L (30-200); Calc. Creatinine Clearance 0 mL/min (70-130); Calcium 7.8 mg/dL (7.8-10.44); Carbon Dioxide 19 mmol/L (22-29); Chloride 105 mmol/L (98-107); Estimated GFR-MDRD 28; Globulin 3.2 g/dL (2.4-3.5); Glucose 102 mg/dL (70-105); Lipase 11 U/L (8-78); Potassium 6.1 mmol/L (3.5-5.1); Protein, Total 6.8 g/dL (6.0-8.3); Sodium 136 mmol/L (136-145)
[2017-12-01 12:56] LABS: CKMB 18.2 ng/mL (0-6.6)
[2017-12-01 13:01] LABS: INR-International Normal Ratio 1.2; PTT 33.4 SEC (22.9-36.1); Prothrombin Time 15.9 SEC (12.0-14.7)
[2017-12-01 13:04] LABS: Amphetamine Not Detected (NotDetected); Barbiturates Screen Not Detected (NotDetected); Benzodiazepine Screen Detected (NotDetected); Cocaine Metabolite Screen Not Detected (NotDetected); Medtox Reader # READER 4; Methadone Not Detected (NotDetected); Methamphetamine Not Detected (NotDetected); Opiate Screen Detected (NotDetected); Oxycodone Screen Not Detected (NotDetected); Phencyclidine (PCP) Not Detected (NotDetected); THC/Cannabinoid Screen Not Detected (NotDetected); Tricyclic Screen Not Detected (NotDetected)
[2017-12-01 13:06] LABS: Medtox Control Line Valid? VALID (VALID)
[2017-12-01 13:09] LABS: Pathc Cast-AUWi Flag 7.41 (0-2.49)
[2017-12-01] MEDS ORDERED: Piperacillin/Tazobactam 4.5 GM VIAL ONE (13:11)
[2017-12-01] MEDS ORDERED: Lorazepam 2 MG/ML VIAL ONE (13:11)
[2017-12-01] MEDS ORDERED: Piperacillin/Tazobactam 3.375 GM VIAL ONE (13:17)
[2017-12-01 13:24] LABS: Hyaline Casts/LPF 0-3 HYALINE CAST LPF (0-3 Hyaline); Other Casts/LPF None Seen LPF (0-3 Hyaline); RBC/HPF 0-3 HPF (0-3); Renal Epithelial None Seen HPF (0-3); Transitional Epithelial NONE SEEN HPF (0-3)
--- NOTE | 2017-12-01 13:38 | RAD ---
CHEST 1 VIEW: Date: 12/01/17 COMPARISON: 09/03/17. HISTORY: Altered mental status. FINDINGS: Endotracheal tube at level of clavicles. Nasogastric tube extends beyond the diaphragm. Distal tip is not seen. Stable right-sided transvenous pacemaker. Stable sternotomy wires and prosthetic heart gustavo ve. Heart is enlarged. Pulmonary vessels are within normal limits. Costophrenic angles are clear. Chr onic changes, without consolidation or mass. Bilateral apical pleural thickening. No pneumothorax or osseous abnormalities. IMPRESSION: No acute cardiopulmonary process. POS: [facility]
--- NOTE | 2017-12-01 13:47 | CT ---
HEAD CT WITHOUT CONTRAST: Date: 12/01/17 COMPARISON: 07/11/17. HISTORY: Altered mental status, minimal responsiveness. TECHNIQUE: Serial axial CT imaging obtained at 5 mm intervals from vertex through skull base without contrast. FINDINGS: The patient is edentulous. There is a nasogastric tube and endotracheal tube which are only partially imaged on this exam. The imaged paranasal sinuses/mastoid air cells are grossly unremarkable. There is no displaced calvarial fracture. There is evidence of prior right MCA infarction, stable. There is no intracranial hemorrhage, midline shift, mass effect, or ventricular enlargement. IMPRESSION: Stable head CT as above. POS: [facility]
--- NOTE | 2017-12-01 13:58 | CT ---
CT CERVICAL SPINE WITHOUT CONTRAST: Date: 12/01/17 COMPARISON: 11/24/14. TECHNIQUE: CT cervical spine is performed without contrast. Reformatted images are submitted for interpretation. HISTORY: Intubated patient. Altered mental status. Family history of heroin and cocaine abuse. FINDINGS: There is no prevertebral soft tissue swelling. Nasogastric and endotracheal tubes are identified. Air attenuation in left and right neck are felt to be intravascular. No high grade central canal stenosis. Varying degrees of foraminal stenosis on the basis of degenerat darrell change. Evaluation is limited by technique. Upper mediastinum and lung apices are unremarkable. There is no craniocervical dissociation. Occipital condyles are intact. Lateral masses of C1 and C2 a rticulate appropriately. There is appropriate articulation of the facets. Odontoid process is intact. Sagittal reformatted images do not demonstrate any malalignment. Cervical spine vertebral body height is maintained. No fracture. IMPRESSION: No fracture. POS: [facility]
[2017-12-01] MEDS ORDERED: CCU Electrolyte Replacement 1 EACH FS ONE (14:20)
[2017-12-01] MEDS ORDERED: VANCOMYCIN IVPB PRN (14:20)
[2017-12-01] MEDS ORDERED: Ventilator Sedation Protocol 1 EACH FS ONE (14:20)
[2017-12-01] MEDS ORDERED: Acetaminophen 650 MG Suppository PR PRN (14:21)
[2017-12-01] MEDS ORDERED: Norepinephrine 8 MG/0.9% NS 250 ML IVPB SCH (14:30)
[2017-12-01] MEDS ORDERED: Sodium Chloride 0.9% 1,000 ML IV SCH (14:30)
[2017-12-01] MEDS ORDERED: Propofol 1,000 MG/100 ML VIAL IV ONE (14:44)
[2017-12-01] MEDS ORDERED: Potassium Phosphate 9 MMOL in Sodium Chloride 0.9% 100 ML IVPB PRN (14:46)
[2017-12-01] MEDS ORDERED: Potassium Phosphate 12 MMOL in Sodium Chloride 0.9% 250 ML 250 ML IV PRN (14:46)
[2017-12-01] MEDS ORDERED: Potassium Chloride 40 MEQ in Premix Bag 1 BAG IVPB PRN (14:46)
[2017-12-01] MEDS ORDERED: Magnesium Oxide 400 MG TAB PO PRN ×2 (14:46)
[2017-12-01] MEDS ORDERED: Potassium Chloride 40 MEQ in Sodium Chloride 0.9% 250 ML 250 ML IVPB PRN (14:46)
[2017-12-01] MEDS ORDERED: CCU ELECTROLYTE REPLACEMENT PROTOCOL FS PRN (14:46)
[2017-12-01] MEDS ORDERED: Potassium Chloride 20 MEQ TAB PO PRN (14:46)
[2017-12-01] MEDS ORDERED: Potassium Phosphate 15 MMOL in Sodium Chloride 0.9% 250 ML 250 ML IV PRN (14:46)
[2017-12-01] MEDS ORDERED: Magnesium 2 GM/NS 0.9% 100 ML 2 GM in Premix Bag 1 BAG IVPB PRN (14:46)
[2017-12-01] MEDS ORDERED: Morphine 4 MG/ML VIAL SLOW IVP PRN (14:47)
[2017-12-01] MEDS ORDERED: Fentanyl BOLUS 250 ML IVPB PRN (14:47)
[2017-12-01] MEDS ORDERED: DISCONTINUE PREVIOUS NARCOTIC PAIN MEDICATIONS AND BENZODIAZEPINES FS SCH (14:47)
[2017-12-01] MEDS ORDERED: Propofol 1,000 MG/100 ML VIAL IV PRN (14:47)
[2017-12-01] MEDS ORDERED: Propofol BOLUS 1,000 MG/100 ML VIAL IV PRN (14:47)
[2017-12-01] MEDS ORDERED: Lorazepam 2 MG/ML VIAL SLOW IVP PRN (14:47)
--- NOTE | 2017-12-01 15:00 | CON ---
DATE OF CONSULTATION: 12/01/2017 This is 45 minutes critical care time. REASON FOR CONSULTATION: Acute respiratory failure related to altered mental status. HISTORY OF PRESENT ILLNESS: A 52-year-old who was apparently found down. He was life-flighted here, he was intubated because of altered mental status. Not much else is known about his current situati on. He has been at this facility multiple times in the past. What I have in terms of history is graeme en from previous encounters here. PAST MEDICAL HISTORY: 1. Substance abuse. 2. Seizure disorder. 3. Congestive heart failure. 4. Hypertension. 5. Stroke. 6. Endocarditis requiring mitral valve replacement. 7. TIAs. 8. Chronic back pain. PAST SURGICAL HISTORY: 1. Pacemaker/defibrillator placement, 2. Mitral valve replacement. 3. Repair of a splenic laceration. SOCIAL HISTORY: Apparently smokes every day. Has a history of opioid abuse. ALLERGIES: None. FAMILY MEDICAL HISTORY: Remarkable for no cardiac or pulmonary conditions. MEDICATIONS PRIOR TO ADMISSION: At this time, not completely known. On his last visit in August, yazan hummel was discharged home on trazodone, Keppra, Effexor, ramipril, Protonix, Dilaudid, diazepam, Plavix, atorvastatin, and aspirin. ALLERGIES: None. REVIEW OF SYSTEMS: Cannot be obtained because the patient is intubated. PHYSICAL EXAMINATION: VITAL SIGNS: Temperature 97.5, pulse 85, blood pressure 93/76, O2 saturation 100%, end-tidal CO2 30. GENERAL: He is currently on Levophed drip at 6 mcg per minute. NEUROLOGIC: He will wake up. He shakes his head and nods his head to questions. HEENT: Pupils 4 mm reactive bilaterally. Sclerae are anicteric. Oropharynx clear. NECK: Without adenopathy, JVD, or bruits. LUNGS: Clear to auscultation without wheezing or rhonchi. CARDIOVASCULAR: S1, S2 is regular without audible murmur, rub or gallop. ABDOMEN: Soft, nontender. EXTREMITIES: No clubbing, cyanosis, or edema. No evidence of track watson. X-RAY FINDINGS AND IMAGING: Chest x-ray shows ET tube that is about 3 cm above the drea. He has a pacemaker in the right upper quadrant of his chest. Lung marks looked clear. He has an OG tube go ing down into his stomach. CT of the brain was negative. CT of the C-spine was negative. LABORATORY DATA: White blood cell count 16.1, hematocrit 44.3, platelet count 214 with 77% neutrophi ls. INR 1.2. PH 7.22, pCO2 of 44, pO2 of 172 that was on SIMV rate 14, tidal volume 500, PEEP 5, pr essure support 10, FiO2 50%. Sodium 136, potassium 6.1, chloride 105, CO2 18, BUN 28, creatinine 2.4 , glucose 102. Troponin 0.159. BNP 631. Lactate 3.1. CPK 1376. Urinalysis was negative. Toxicol ogy screen demonstrates opiates and benzodiazepine. ASSESSMENT: 1. Presumed narcotic overdose versus altered mental status from seizure versus altered mental status from infection. 2. History of drug abuse. 3. History of prosthetic mitral valve. 4. History of pacemaker placement. 5. Renal insufficiency. 6. Hyperkalemia. PLAN: 1. I would give a dose of Kayexalate and repeat his potassium level. 2. Continue mechanical ventilation. 3. Empiric treatment for sepsis. 4. Hopefully wake up and extubate within the next 24-48 hours.
[2017-12-01] MEDS: Dextrose 5 %-0.45 % NaCl 1,000 ML IV SCH (16:17)
[2017-12-01 16:20] LABS: Lactic Acid 3.8 mmol/L (0.5-2.2)
[2017-12-01 16:24] VITALS: BMI 19.3
[2017-12-01] MEDS: Cefepime 1 GM, Admixture Fee 1 EACH in Sodium Chloride 0.9% 10 ML SLOW IVP SCH (16:25)
[2017-12-01 17:00] LABS: Actual Bicarbonate (HCO3a) 18.6 mEq/L (22-26); Base Excess (BEa) -5.2 mEq/L (0 (+/-) 2.5); CO2 Tension 31.5 mmHg (35.0-45.0); O2 Tension (PaO2) 171.5 mmHg (80.0-100.0); pH, Arterial 7.39 (7.35-7.45)
[2017-12-01 17:01] LABS: Hematocrit-ABG 43.6 % (42.0-52.0); Hemoglobin (Hb) 14.5 g/dL (14.0-18.0)
[2017-12-01 17:03] LABS: ALV-art Gradient 145.625 (0-20); Puncture Site RBA
--- NOTE | 2017-12-01 17:31 | HP ---
PRIMARY CARE PHYSICIAN: [facility] call admission. REASON FOR ADMISSION: Acute respiratory failure, septic shock. HISTORY OF PRESENT ILLNESS: A 52-year-old male, who has underlying history of mitral valve replacement with bioprosthetic valve for endocarditis, who was found unresponsive and altered. Paramedics were called and patient was intubated at the scene. Patient was minimally responsive to paramedics. Patient has a history of polysubstance abuse including heroin and cocaine. As per paramedics, blood sugar was normal, but he was hypotensive. He was tachycardic and little bit febrile. The patient was started on Levophed drip. When he arrived to the emergency room, his blood pressure was 51/37. He was saturating normal on ventilator. The patient was given 4 liters of IV fluid and despite that his blood pressure was running low and that is why Levophed drip was also continued in the emergency room. Patient also had acute kidney failure and acute lactic acidosis and he also had leukocytosis. His potassium was also elevated and his total CK and troponin was also elevated. He also had elevated BNP. At this point, the patient is not able to provide any history because patient is intubated. We are admitting this patient for respiratory failure, acute kidney failure, septic shock, and rhabdomyolysis. REVIEW OF SYSTEMS: All review of system tried to review with the patient, but unable to review at this point because the patient is intubated and sedated. ALLERGIES: No known drug allergy. CURRENT HOME MEDICATIONS: As per report, the patient is on following Trazodone 100 mg p.o. at bedtime, aspirin 325 mg p.o. daily, ramipril 2.5 mg p.o. daily, Lipitor 10 mg p.o. daily, Keppra 500 mg twice daily, ibuprofen 800 mg q.6 hourly p.r.n., venlafaxine 75 mg p.o. daily, and Plavix 75 mg p.o. daily. PAST MEDICAL HISTORY: Chronic congestive heart failure, hypertension, history of mitral valve endocarditis required a bioprosthetic mitral valve replacement, history of multiple TIAs, chronic low back pain, chronic narcotic dependence, seizure disorder, history of CVA, and dyslipidemia. PAST PSYCHIATRIC HISTORY: Anxiety and depression. PAST SURGICAL HISTORY: Pacemaker/defibrillator placement, bioprosthetic aortic valve replacement at mitral valve, history of splenic laceration after fall required surgery, left inguinal hernia repair, appendicectomy, history of right hip fracture required surgery. SOCIAL HISTORY: The patient has history of polysubstance abuse. He has history of smoking about 1 pack per day for last 20 years. He also has history of drug addiction with heroin and cocaine. FAMILY HISTORY: No strong family history of premature coronary artery disease, stroke or cancer. EMERGENCY ROOM COURSE: Patient is given vancomycin and Zosyn empirically, IV fluid, Levophed drip, Ativan 1 mg, fentanyl, and propofol drip was started for ventilation sedation protocol. In the emergency room, left femoral central line was placed. PHYSICAL EXAMINATION: VITAL SIGNS: Blood pressure lowest in the emergency room is 48/38, pulse 87, respiratory rate 24, saturation 98% on ventilator, weight 65.6 kilograms, blood pressure improved to 82/64, and temperature 98.2. GENERAL: The patient is currently intubated and sedated. HEAD: Normocephalic, atraumatic. EYES: Pupils round, reactive to light. ENT: Endotracheal tube in place. Somewhat dry appearing mucous membranes. NECK: Supple, no JVD, no carotid bruit, no lymph nodes. LUNGS: Clear to auscultation without any obvious rhonchi or rales. CARDIAC: S1, S2 regular, prosthetic aortic sound heard at mitral valve, no gallop, no rub. ABDOMEN: Soft, bowel sounds present, nondistended, no organomegaly, no mass. Bowel sounds present. GENITALIA: Marie catheter in place. Left groin femoral catheter in place. BACK: Unremarkable, no CVA tenderness. No decubitus ulcer. EXTREMITIES: Upper extremity passive movement of all joints are normal. Lower extremity passive movement of all joints are normal. SKIN: No skin rash. HEMATOLOGICAL: No lymphadenopathy. PSYCHIATRIC: Unable to assess at this point because the patient is intubated. NEUROLOGIC: Grossly nonfocal examination. He is moving all 4 limbs. SIGNIFICANT LABS: EKG showing pacemaker rhythm. Chest x-ray based on my review , no acute cardiopulmonary process. CBC: WBC 16.1, hemoglobin 14.7, platelet 214 with a left shift. INR 1.2. ABG: pH 7.22, bicarbonate 17.6, CO2of 44.4, O2 is 172. BMP: Sodium 136, potassium 3.6, chloride 105, carbon dioxide 19, anion gap 18, BUN 28, creatinine 2.44, glucose 102, calcium 7.8. Lactic acid 3.1. LFT: AST 57, ALT 43, alkaline phosphatase 65, albumin 3.6, lipase 11, CK 1376, CK-MB 18.2, troponin I 0.159, BNP 631.2. Urinalysis unremarkable. Blood moderate, RBC only 0-3. Urine drug screen positive for opiates and benzos. Serum drug screen negative. ASSESSMENT AND PLAN: 1. Acute respiratory failure with hypoxia. Patient required intubation at the scene and currently on ventilator. Pulmonary group is consulted and they will manage ventilator. Ventilation sedation protocol initiated. While on ventilator, we will monitor CBC, BMP, ABG, chest x-ray daily basis. 2. Septic shock, source of infection is unclear, but suspecting bacteremia. The patient will be kept on empirically broad spectrum antibiotic therapy with cefepime 1 gram q.12 hourly and vancomycin as per pharmacy adjusted dose. We will follow up on blood and urine culture result. Patient is hypotensive and he will require Levophed drip and will titrate to keep blood pressure above 100 systolic. Patient will be given IV fluid. 3. Severe sepsis with acute organ dysfunction. This patient has leukocytosis with left shift, lactic acidosis as well as acute kidney failure and respiratory failure. The patient is already on broad spectrum antibiotic therapy with cefepime and vancomycin. 4. Acute kidney failure. The patient will be given IV fluid with NS at 100 mL per hour. We will monitor renal function. 5. Acute hyperkalemia. Patient will be given Kayexalate and will start bicarbonate drip with half normal saline and 2 ampules of sodium bicarbonate at 100 mL per hour. 6. Rhabdomyolysis. We will monitor total CK. We will hold on statin therapy. 7. Demand ischemia of myocardium. We will do serial cardiac enzymes x3 to rule out acute coronary syndrome. 8. Elevated BNP. During this admission, during this admission, we will watch for any fluid overload status. This patient already had echocardiography early this year, so does not need anymore. Echocardiography 9. History of bioprosthetic mitral valve for infective endocarditis. We will follow up on culture result to rule out any ongoing endocarditis. 10. Dyslipidemia. We are holding statin therapy because of rhabdomyolysis. 11. Seizure disorder. We will continue Keppra 500 mg IV b.i.d. 12. Deep venous thrombosis prophylaxis. Lovenox 30 mg subcutaneously daily. 13. Gastrointestinal prophylaxis, Protonix 40 mg IV daily. 14. Code status: The patient is FULL CODE. The patient does not have any surrogate decision maker. Disposition plan based on clinical course. We are expecting patient's stay in hospital more than 2 midnights. Plan of care discussed with the patient and family member. The patient and family member in the emergency room. CLAUDINE
[2017-12-01] MEDS ORDERED: Piperacillin/Tazobactam 3.375 GM in Sodium Chloride 0.9% 100 ML IVPB SCH (18:00)
[2017-12-01] MEDS ORDERED: Cefepime 1 GM in Sodium Chloride 0.9% 100 ML IVPB SCH (21:00)
[2017-12-01 22:20] LABS: Potassium 4.5 mmol/L (3.5-5.1)
[2017-12-02] MEDS: Dextrose 5 %-0.45 % NaCl 1,000 ML IV SCH ×3 (02:02→20:45)
[2017-12-02] MEDS: Cefepime 1 GM, Admixture Fee 1 EACH in Sodium Chloride 0.9% 10 ML SLOW IVP SCH ×2 (04:33→14:20)
[2017-12-02 04:48] LABS: #Lymphocytes 2.4 thou/uL (1.20-3.40); #Monocytes 1.3 thou/uL (0.11-0.59); #Neutrophils 8.2 thou/uL (1.40-6.50); %Basophils 0.3 % (0.0-1.0); %Eosinophils 0.2 % (0.0-10.0); %Lymphocytes 20.1 % (21.0-51.0); %Monocytes 11.1 % (0.0-10.0); %Neutrophils 68.3 % (42.0-75.0); Hemoglobin 13.7 g/dL (14.0-18.0); Mean Corpuscular HGB CONC 34.1 g/dL (32.0-36.0); Mean Corpuscular Hemoglobin 33.1 pg (27.0-31.0); Mean Platelet Volume 7.5 fL (7.4-10.4); Platelet Count 211 thou/uL (130-400); RBC Distribution Width 13.2 % (11.5-14.5); Red Blood Cell (RBC) Count 4.14 mill/uL (4.70-6.10)
[2017-12-02 05:01] LABS: Anion Gap 11 mmol/L (10-20); BUN (Urea Nitrogen) 18 mg/dL (8.4-25.7); Calc. Creatinine Clearance 66 mL/min (70-130); Calcium 7.9 mg/dL (7.8-10.44); Carbon Dioxide 24 mmol/L (22-29); Chloride 107 mmol/L (98-107); Estimated GFR-MDRD 64; Glucose 139 mg/dL (70-105); Potassium 3.6 mmol/L (3.5-5.1); Sodium 138 mmol/L (136-145)
[2017-12-02 05:07] LABS: CK (CPK) 5759 U/L (30-200)
[2017-12-02 05:48] LABS: Lactic Acid 1.5 mmol/L (0.5-2.2)
[2017-12-02 06:45] LABS: Actual Bicarbonate (HCO3a) 21.3 mEq/L (22-26); Base Excess (BEa) -0.4 mEq/L (0 (+/-) 2.5); CO2 Tension 27.1 mmHg (35.0-45.0); Hematocrit-ABG 38.1 % (42.0-52.0); Hemoglobin (Hb) 13.1 g/dL (14.0-18.0); O2 Tension (PaO2) 85.4 mmHg (80.0-100.0); pH, Arterial 7.51 (7.35-7.45)
[2017-12-02 06:47] LABS: ALV-art Gradient 165.925 (0-20); Calcium, Ionized 1.1 mmol/L (1.12-1.30); Puncture Site RBA
[2017-12-02 07:53] VITALS: BP 104/80
--- NOTE | 2017-12-02 07:55 | RAD ---
SUPINE FRONTAL CHEST RADIOGRAPH: Date: 12/02/17 COMPARISON: 12/01/17. HISTORY: Ventilated patient. FINDINGS: Stable endotracheal tube, nasogastric tube, and transvenous pacing device. No lobar consolidation or alveolar edema. Supine imaging limits assessment for pneumothorax and pleural fluid. Midline sternoto my wires present. IMPRESSION: No significant interval change. POS: [facility]
[2017-12-02] MEDS ORDERED: Enoxaparin Sodium 30 MG/0.3 ML SYRINGE SC SCH (09:00)
[2017-12-02] MEDS ORDERED: Pantoprazole 40 MG VIAL IVP SCH (09:00)
--- NOTE | 2017-12-02 09:12 | PRG ---
DATE OF SERVICE: 12/02/2017 This is 35 minutes critical care time. SUBJECTIVE: The patient remains intubated on mechanical ventilation. He was deeply sedated when Kristel crapio saw him this morning. He is on a Levophed drip at 4 mcg per minute. He is also on propofol and fentanyl. PHYSICAL EXAMINATION: VITAL SIGNS: Temperature is 98.9 with a T-max of 100.1, pulse 80, blood pressure 98/73. A 24 hour i ntake is 1834, output 1124. HEENT: Pupils react. Sclerae anicteric. Oropharynx clear. NECK: No JVD. LUNGS: Clear to auscultation without wheezing or rhonchi. CARDIAC: S1, S2 regular, without murmur, rub or gallop. ABDOMEN: Soft, nontender, nondistended. EXTREMITIES: No clubbing, cyanosis, or edema. LABORATORY DATA: Sodium 138, potassium 3.6, chloride 107, CO2 24, BUN 18, creatinine 1.2, glucose 13 9. CPK 5759. pH 7.51, pCO2 27, pO2 85 on SIMV rate 20, tidal volume 500, PEEP 5, pressure support 1 0, FIO2 40%. White blood cell count 12, hematocrit 40, platelet count 211. X-RAY FINDINGS: Chest x-ray shows no significant mass, effusion or infiltrate. Endotracheal tube is in good position. ASSESSMENT: 1. Acute respiratory failure requiring mechanical ventilation. 2. Presumed narcotic overdose versus seizure. 3. Rhabdomyolysis. 4. History of drug abuse. 5. Prosthetic mitral valve. 6. Pacemaker placement. 7. Renal insufficiency. 8. Corrected hyperkalemia. PLAN: 1. We will try to lessen the sedation and hopefully extubate the patient today. For the time being, he is continuing broad spectrum IV antibiotics, although it is not completely clear what we are cove ring with those. If his 48 hour cultures are negative, then I would propose stopping the antibiotics . 2. Wean off the Levophed drip - hopefully, this is just a matter of kind of balancing this effect of the sedation. 3. Ventilator settings have been adjusted and rapid weaning will take place provided the patient wak es up and is appropriate.
[2017-12-02] MEDS ORDERED: DC Sedation Protocol FS ONE (10:30)
--- NOTE | 2017-12-02 12:05 | PDOC.PN ---
- Subjective Encounter Start Date: 12/02/17 Encounter Start Time: 09:40 -: old records requested/rev this morning pt is extubated, doing well, BP improved, - Objective MAR Reviewed: Yes Vital Signs & Weight: Vital Signs (12 hours) Temp Pulse Resp BP Pulse Ox 12/02/17 08:50 88 99 H 21 L 12/02/17 07:54 98.3 F 80 16 12/02/17 07:49 80 104/80 12/02/17 07:47 80 46 H 99 12/02/17 07:00 98.3 F 12/02/17 06:00 20 12/02/17 04:00 98.9 F 23 H 12/02/17 02:00 20 Weight Weight 142 lb 3.17 oz Most Recent Monitor Data Heart Rate from ECG 84 NIBP 103/73 NIBP BP-Mean 84 Respiration from ECG 18 SpO2 96 I&O: 12/01/17 12/02/17 12/03/17 06:59 06:59 06:59 Intake Total 1834.1 39.2 Output Total 1124 305 Balance 710.1 -265.8 Result Diagrams: 12/02/17 04:33 12/02/17 04:33 Radiology Reviewed by me: Yes (chest xray) EKG Reviewed by me: Yes (nsr) Phys Exam - Physical Examination Constitutional: NAD HEENT: PERRLA, moist MMs, sclera anicteric Neck: no JVD, supple Respiratory: no wheezing, no rales, no rhonchi Cardiovascular: RRR, no significant murmur, no rub Gastrointestinal: soft, non-tender, no distention, positive bowel sounds vargas+ Musculoskeletal: no edema, pulses present left groin femoral central line Neurological: non-focal, normal sensation, moves all 4 limbs Lymphatic: no nodes Psychiatric: normal affect Skin: no rash, normal turgor Dx/Plan (1) Acute kidney failure Status: Resolved (2) Acute respiratory failure with hypoxia Code(s): J96.01 - ACUTE RESPIRATORY FAILURE WITH HYPOXIA Status: Resolved (3) Encephalopathy acute Code(s): G93.40 - ENCEPHALOPATHY, UNSPECIFIED Status: Resolved (4) Lactic acidosis Code(s): E87.2 - ACIDOSIS Status: Resolved (5) Rhabdomyolysis Code(s): M62.82 - RHABDOMYOLYSIS Status: Acute (6) Septic shock Code(s): A41.9 - SEPSIS, UNSPECIFIED ORGANISM; R65.21 - SEVERE SEPSIS WITH SEPTIC SHOCK Status: Suspected (7) Anxiety Code(s): F41.9 - ANXIETY DISORDER, UNSPECIFIED Status: Chronic (8) H/O endocarditis Code(s): Z86.79 - PERSONAL HISTORY OF OTHER DISEASES OF THE CIRCULATORY SYSTEM Status: Chronic (9) History of mitral valve replacement Code(s): Z95.2 - PRESENCE OF PROSTHETIC HEART VALVE Status: Chronic (10) Hypertension Code(s): I10 - ESSENTIAL (PRIMARY) HYPERTENSION Status: Chronic Qualifiers: (11) Protein-calorie malnutrition, moderate Code(s): E44.0 - MODERATE PROTEIN-CALORIE MALNUTRITION Status: Chronic (12) Seizure disorder Code(s): G40.909 - EPILEPSY, UNSP, NOT INTRACTABLE, WITHOUT STATUS EPILEPTICUS Status: Chronic - Plan cont current plan of care, continue antibiotics * now BP improved and will wean off levophed drip * will continue today empiric antibiotics for suspected sepsis, if culture continue to be negative then will stop antibiotics * will monitor in CCU and then will consider transfer to medical * medication reviewed as below * symptomatic treatment * continue gentle IVF * start diet * we are suspecting mainly medication overdose and then encephalopthy and hypotension. Review of Systems - Review of Systems ENT: negative: Ear Pain, Ear Discharge, Nose Pain, Nose Discharge, Nose Congestion, Mouth Pain, Mouth Swelling, Throat Pain, Throat Swelling, Other Respiratory: negative: Cough, Dry, Shortness of Breath, Hemoptysis, SOB with Excertion, Pleuritic Pain, Sputum, Wheezing Cardiovascular: negative: chest pain, palpitations, orthopnea, paroxysmal nocturnal dyspnea, edema, light headedness, other Gastrointestinal: negative: Nausea, Vomiting, Abdominal Pain, Diarrhea, Constipation, Melena, Hematochezia, Other Genitourinary: negative: Dysuria, Frequency, Incontinence, Hematuria, Retention , Other Musculoskeletal: negative: Neck Pain, Shoulder Pain, Arm Pain, Back Pain, Hand Pain, Leg Pain, Foot Pain, Other Skin: negative: Rash, Lesions, Lionel, Bruising, Other - Medications/Allergies Allergies/Adverse Reactions: Allergies Allergy/AdvReac Type Severity Reaction Status Date / Time No Known Drug Allergies Allergy Verified 05/23/17 03:37 Medications: Current Medications Acetaminophen (Tylenol) 650 mg UT Q4H PRN PRN Reason: Headache/Fever or Pain Albuterol/Ipratropium (Duoneb) 3 ml NEB [id number] [facility] Last Admin: 12/02/17 07:47 Dose: 3 ml Aspirin (Aspirin) 325 mg PO DAILY [facility] Clopidogrel Bisulfate (Plavix) 75 mg PO DAILY [facility] Enoxaparin Sodium (Lovenox) 30 mg SC 0900 [facility] Last Admin: 12/02/17 08:48 Dose: 30 mg Norepinephrine Bitartrate (Levophed) 250 mls @ 0 mls/hr IVPB INF MARKIE; Titrate PRN Reason: Protocol Last Admin: 12/02/17 06:30 Dose: 250 mls Potassium Chloride 40 meq/ (Sodium Chloride) 270 mls @ 135 mls/hr IVPB ASDIR PRN PRN Reason: FOR SERUM K+ 2.5 - 3.5 Potassium Chloride 40 meq/ (Device) 100 mls @ 50 mls/hr IVPB ASDIR PRN PRN Reason: FOR SERUM K+ 2.5 - 3.5 Magnesium Sulfate 1 gm/ Sodium (Chloride) 102 mls @ 102 mls/hr IV PRN PRN PRN Reason: MAG LEVEL 1.4 - 2.0 Magnesium Sulfate 2 gm/ Device 100 mls @ 100 mls/hr IVPB ASDIR PRN PRN Reason: MAGNESIUM < 1.4 Potassium Phosphate 9 mmol/ (Sodium Chloride) 103 mls @ 25.75 mls/hr IVPB ASDIR PRN PRN Reason: Phosphate 1.0-1.8 Potassium Phosphate 12 mmol/ (Sodium Chloride) 254 mls @ 63.5 mls/hr IV ASDIR PRN PRN Reason: Serum phosphate 0.5-0.9 Potassium Phosphate 15 mmol/ (Sodium Chloride) 255 mls @ 63.75 mls/hr IV ASDIR PRN PRN Reason: Serum Phos < 0.5 Cefepime HCl 1 gm/Miscellaneous Medication 1 each/ Sodium Chloride 10 mls @ 120 mls/hr SLOW IVP 0300,1500 [facility] Last Admin: 12/02/17 04:33 Dose: 10 mls Dextrose/Sodium Chloride (D5 1/2 Ns) 1,000 mls @ 100 mls/hr IV .Q10H [facility] Last Admin: 12/02/17 02:02 Dose: 1,000 mls Levetiracetam 500 mg/ Device 100 mls @ 200 mls/hr IVPB BID [facility] Last Admin: 12/02/17 08:48 Dose: 100 mls Vancomycin HCl 1 gm/ Device 200 mls @ 200 mls/hr IVPB 1300 [facility] Magnesium Oxide (Magnesium Oxide) 400 mg PO BIDPRN PRN PRN Reason: FOR SERUM MAG 1.4 - 2.0 Magnesium Oxide (Magnesium Oxide) 800 mg PO PRN PRN PRN Reason: FOR SERUM MAG < 1.4 Miscellaneous Medication (Pharmacy To Dose) 1 each IVPB PRN PRN PRN Reason: Pharmacy to dose Miscellaneous Medication (Phos-Nak) 1 pkt PO TIDPRN PRN PRN Reason: FOR PHOS LEVEL 1.0 - 1.8 Miscellaneous Medication (Phos-Nak) 2 pkt PO TIDPRN PRN PRN Reason: FOR PHOS LEVEL 0.5 - 1.0 Ccu Electrolyte (Replacement Protocol) 0 each FS PRN PRN PRN Reason: FOR ELECTROLYTE REPLACEMENT Discontinue Previous Narcotic Pain Medications And Benzodiazepines 1 each FS .ONE [facility] Stop: 12/31/17 14:47 Pantoprazole Sodium (Protonix) 40 mg IVP DAILY [facility] Last Admin: 12/02/17 08:48 Dose: 40 mg Potassium Chloride (K-Dur) 40 meq PO ASDIR PRN PRN Reason: FOR SERUM K+ 2.5 - 3.5 Potassium Chloride (Klor-Con) 40 meq PER TUBE ASDIR PRN PRN Reason: FOR SERUM K+ 2.5-3.5
[2017-12-02] MEDS ORDERED: Vancomycin HCl 1 GM in Premix Bag 1 BAG IVPB SCH (13:00)
[2017-12-02] MEDS: Vancomycin HCl 1 GM in Premix Bag 1 BAG IVPB SCH (13:17)
[2017-12-03] MEDS: Vancomycin HCl 1 GM in Premix Bag 1 BAG IVPB SCH (00:55)
[2017-12-03] MEDS: Cefepime 1 GM, Admixture Fee 1 EACH in Sodium Chloride 0.9% 10 ML SLOW IVP SCH (02:49)
[2017-12-03 04:27] LABS: Anion Gap 7 mmol/L (10-20); BUN (Urea Nitrogen) 5 mg/dL (8.4-25.7); Calc. Creatinine Clearance 101 mL/min (70-130); Calcium 8.3 mg/dL (7.8-10.44); Carbon Dioxide 30 mmol/L (22-29); Chloride 107 mmol/L (98-107); Estimated GFR-MDRD Greater than 90; Glucose 107 mg/dL (70-105); Potassium 3.4 mmol/L (3.5-5.1); Sodium 141 mmol/L (136-145)
[2017-12-03 04:35] VITALS: TEMP 98.2
--- NOTE | 2017-12-03 07:26 | PDOC.PN ---
- Subjective Encounter Start Date: 12/03/17 Encounter Start Time: 06:45 Patient seen and examined. No new complaints. No overnight events pt wants to leave AMA - Objective MAR Reviewed: Yes Vital Signs & Weight: Vital Signs (12 hours) Temp Pulse Resp Pulse Ox 12/03/17 04:00 98.2 F 12/03/17 00:00 98.1 F 12/02/17 23:42 80 16 96 12/02/17 20:00 98.2 F 84 16 93 L Weight Weight 142 lb 3.17 oz Most Recent Monitor Data Heart Rate from ECG 83 NIBP 127/86 NIBP BP-Mean 93 Respiration from ECG 13 SpO2 93 I&O: 12/02/17 12/03/17 12/04/17 06:59 06:59 06:59 Intake Total 1834.1 3026.2 Output Total 1124 3760 Balance 710.1 -733.8 Result Diagrams: 12/02/17 04:33 12/03/17 04:00 Radiology Reviewed by me: Yes (chest xray) EKG Reviewed by me: Yes (nsr) Phys Exam - Physical Examination Constitutional: NAD HEENT: PERRLA, moist MMs, sclera anicteric Neck: no JVD, supple Respiratory: no wheezing, no rales, no rhonchi Cardiovascular: RRR, no significant murmur, no rub Gastrointestinal: soft, non-tender, no distention, positive bowel sounds Musculoskeletal: no edema, pulses present Neurological: non-focal Lymphatic: no nodes Psychiatric: normal affect, A&O x 3 Skin: no rash, normal turgor Dx/Plan (1) Acute kidney failure Status: Resolved (2) Acute respiratory failure with hypoxia Code(s): J96.01 - ACUTE RESPIRATORY FAILURE WITH HYPOXIA Status: Resolved (3) Encephalopathy acute Code(s): G93.40 - ENCEPHALOPATHY, UNSPECIFIED Status: Resolved (4) Lactic acidosis Code(s): E87.2 - ACIDOSIS Status: Resolved (5) Rhabdomyolysis Code(s): M62.82 - RHABDOMYOLYSIS Status: Acute (6) Septic shock Code(s): A41.9 - SEPSIS, UNSPECIFIED ORGANISM; R65.21 - SEVERE SEPSIS WITH SEPTIC SHOCK Status: Suspected (7) Anxiety Code(s): F41.9 - ANXIETY DISORDER, UNSPECIFIED Status: Chronic (8) H/O endocarditis Code(s): Z86.79 - PERSONAL HISTORY OF OTHER DISEASES OF THE CIRCULATORY SYSTEM Status: Chronic (9) History of mitral valve replacement Code(s): Z95.2 - PRESENCE OF PROSTHETIC HEART VALVE Status: Chronic (10) Hypertension Code(s): I10 - ESSENTIAL (PRIMARY) HYPERTENSION Status: Chronic Qualifiers: (11) Protein-calorie malnutrition, moderate Code(s): E44.0 - MODERATE PROTEIN-CALORIE MALNUTRITION Status: Chronic (12) Seizure disorder Code(s): G40.909 - EPILEPSY, UNSP, NOT INTRACTABLE, WITHOUT STATUS EPILEPTICUS Status: Chronic - Plan cont current plan of care, continue antibiotics * pt is wanted to leave AMA despite explanation * medication reviewed as below * symptomatic treatment. Review of Systems - Review of Systems ENT: negative: Ear Pain, Ear Discharge, Nose Pain, Nose Discharge, Nose Congestion, Mouth Pain, Mouth Swelling, Throat Pain, Throat Swelling, Other Respiratory: negative: Cough, Dry, Shortness of Breath, Hemoptysis, SOB with Excertion, Pleuritic Pain, Sputum, Wheezing Cardiovascular: negative: chest pain, palpitations, orthopnea, paroxysmal nocturnal dyspnea, edema, light headedness, other Gastrointestinal: negative: Nausea, Vomiting, Abdominal Pain, Diarrhea, Constipation, Melena, Hematochezia, Other Genitourinary: negative: Dysuria, Frequency, Incontinence, Hematuria, Retention , Other Musculoskeletal: negative: Neck Pain, Shoulder Pain, Arm Pain, Back Pain, Hand Pain, Leg Pain, Foot Pain, Other Skin: negative: Rash, Lesions, Lionel, Bruising, Other - Medications/Allergies Allergies/Adverse Reactions: Allergies Allergy/AdvReac Type Severity Reaction Status Date / Time No Known Drug Allergies Allergy Verified 05/23/17 03:37 Medications: Current Medications Acetaminophen (Tylenol) 650 mg IN Q4H PRN PRN Reason: Headache/Fever or Pain Albuterol/Ipratropium (Duoneb) 3 ml NEB [id number] [facility] Last Admin: 12/02/17 23:42 Dose: 3 ml Aspirin (Aspirin) 325 mg PO DAILY [facility] Clopidogrel Bisulfate (Plavix) 75 mg PO DAILY [facility] Enoxaparin Sodium (Lovenox) 30 mg SC 0900 [facility] Last Admin: 12/02/17 08:48 Dose: 30 mg Norepinephrine Bitartrate (Levophed) 250 mls @ 0 mls/hr IVPB INF MARKIE; Titrate PRN Reason: Protocol Last Admin: 12/02/17 06:30 Dose: 250 mls Potassium Chloride 40 meq/ (Sodium Chloride) 270 mls @ 135 mls/hr IVPB ASDIR PRN PRN Reason: FOR SERUM K+ 2.5 - 3.5 Potassium Chloride 40 meq/ (Device) 100 mls @ 50 mls/hr IVPB ASDIR PRN PRN Reason: FOR SERUM K+ 2.5 - 3.5 Magnesium Sulfate 1 gm/ Sodium (Chloride) 102 mls @ 102 mls/hr IV PRN PRN PRN Reason: MAG LEVEL 1.4 - 2.0 Magnesium Sulfate 2 gm/ Device 100 mls @ 100 mls/hr IVPB ASDIR PRN PRN Reason: MAGNESIUM < 1.4 Potassium Phosphate 9 mmol/ (Sodium Chloride) 103 mls @ 25.75 mls/hr IVPB ASDIR PRN PRN Reason: Phosphate 1.0-1.8 Potassium Phosphate 12 mmol/ (Sodium Chloride) 254 mls @ 63.5 mls/hr IV ASDIR PRN PRN Reason: Serum phosphate 0.5-0.9 Potassium Phosphate 15 mmol/ (Sodium Chloride) 255 mls @ 63.75 mls/hr IV ASDIR PRN PRN Reason: Serum Phos < 0.5 Cefepime HCl 1 gm/Miscellaneous Medication 1 each/ Sodium Chloride 10 mls @ 120 mls/hr SLOW IVP 0300,1500 [facility] Last Admin: 12/03/17 02:49 Dose: 10 mls Dextrose/Sodium Chloride (D5 1/2 Ns) 1,000 mls @ 100 mls/hr IV .Q10H [facility] Last Admin: 12/02/17 20:45 Dose: 1,000 mls Levetiracetam 500 mg/ Device 100 mls @ 200 mls/hr IVPB BID [facility] Last Admin: 12/02/17 20:45 Dose: 100 mls Vancomycin HCl 1 gm/ Device 200 mls @ 200 mls/hr IVPB 0100,1300 [facility] Last Admin: 12/03/17 00:55 Dose: 200 mls Magnesium Oxide (Magnesium Oxide) 400 mg PO BIDPRN PRN PRN Reason: FOR SERUM MAG 1.4 - 2.0 Magnesium Oxide (Magnesium Oxide) 800 mg PO PRN PRN PRN Reason: FOR SERUM MAG < 1.4 Miscellaneous Medication (Pharmacy To Dose) 1 each IVPB PRN PRN PRN Reason: Pharmacy to dose Miscellaneous Medication (Phos-Nak) 1 pkt PO TIDPRN PRN PRN Reason: FOR PHOS LEVEL 1.0 - 1.8 Miscellaneous Medication (Phos-Nak) 2 pkt PO TIDPRN PRN PRN Reason: FOR PHOS LEVEL 0.5 - 1.0 Ccu Electrolyte (Replacement Protocol) 0 each FS PRN PRN PRN Reason: FOR ELECTROLYTE REPLACEMENT Discontinue Previous Narcotic Pain Medications And Benzodiazepines 1 each FS .ONE [facility] Stop: 12/31/17 14:47 Pantoprazole Sodium (Protonix) 40 mg IVP DAILY [facility] Last Admin: 12/02/17 08:48 Dose: 40 mg Potassium Chloride (K-Dur) 40 meq PO ASDIR PRN PRN Reason: FOR SERUM K+ 2.5 - 3.5 Last Admin: 12/03/17 06:50 Dose: 40 meq Potassium Chloride (Klor-Con) 40 meq PER TUBE ASDIR PRN PRN Reason: FOR SERUM K+ 2.5-3.5
[2017-12-03] MEDS ORDERED: Aspirin 325 MG TAB PO SCH (09:00)
[2017-12-03] MEDS ORDERED: Clopidogrel Bisulfate 75 MG TAB PO SCH (09:00)
--- NOTE | 2017-12-03 09:47 | RAD ---
PORTABLE SEMIUPRIGHT FRONTAL CHEST RADIOGRAPH: Date: 12/03/17 COMPARISON: 12/02/17. HISTORY: Ventilated patient. FINDINGS: Endotracheal tube and nasogastric tube have been removed since the prior exam. Stable transvenous pac ing device and midline sternotomy wires. No pneumothorax, lobar consolidation, or alveolar edema. IMPRESSION: Lines and tubes as above. POS: [facility]
--- NOTE | 2017-12-03 12:44 | DIS ---
DATE OF ADMISSION: 12/01/2017 DATE OF DISCHARGE: 12/03/2017 PRIMARY CARE PHYSICIAN: Dr. Brittney Escalona. DISCHARGE DISPOSITION: Against medical advice. PRIMARY DISCHARGE DIAGNOSES: 1. Acute toxic metabolic encephalopathy, resolved. 2. Acute respiratory failure with hypoxia, resolved. 3. Acute kidney failure, improved. 4. Lactic acidosis, improved. 5. Rhabdomyolysis. 6. Acute hypotension, resolved. 7. Suspected sepsis. SECONDARY DISCHARGE DIAGNOSES: Anxiety disorder, history of endocarditis, history of mitral valve re placement, hypertension, moderate protein calorie malnutrition, seizure disorder, and noncompliance w ith treatment. PRIMARY PROCEDURE/OPERATION: Endotracheal intubation, mechanical ventilator support and central line placement. RADIOLOGICAL INVESTIGATION: Chest x-ray, CT cervical spine, CT brain. SIGNIFICANT LABORATORY DATA: Hemoglobin 13.7, INR 1.2, creatinine 0.79. CK of 5759. Urinalysis unr emarkable. Urine drug screen positive for opiates and benzos. Blood culture and urine culture negat darrell. DISCHARGE MEDICATIONS: Patient left against medical advice. The patient will continue all his previ ous medication including aspirin 325 mg p.o. daily, Lipitor 10 mg p.o. daily, Plavix 75 mg p.o. daily , Keppra 500 mg p.o. b.i.d., ramipril 2.5 mg p.o. daily, trazodone 100 mg p.o. at bedtime, venlafaxin e 75 mg p.o. daily. CONTRAINDICATIONS: None. CODE STATUS: FULL CODE. INPATIENT CERTIFICATION TECHNICIAN: Dr. Cueva was managing ventilator. TEST RESULTS PENDING ON DISCHARGE: Culture result. DISCHARGE PLAN: Post hospital, patient left against medical advice without any prescriptions. HOSPITAL COURSE: A 52-year-old male who was found unresponsive and for airway protection, he was int ubated. In the emergency room, he was hypotensive. He had leukocytosis and lactic acidosis along wi th renal failure. We suspected septic shock initially, and that is why we started on broad spectrum antibiotic therapy. Subsequently, patient was admitted in CCU and Dr. Cueva was managing ventilato r. The patient also required Levophed for blood pressure support. Next day, patient was stabilized. His renal function improved and lactic acidosis improved. He was alert and that is why ventilator sedation protocol was weaned off and the patient was extubated. Patient did not require any Levophed next day. We continued empiric antibiotic therapy and blood culture remained negative. Culture is still in process. His labs profile is unremarkable. At this point, we are suspecting samia t this patient might have done overdose with medication and that might have caused his respiratory fa ilure and hypotension, but underlying infection is still not completely ruled out. This morning, patient decided to leave against medical advice. I explained to him to stay in [facility], but he does not want to stay and he making his decision and he wants to leave against medical advi ce, which he did in the past as well. The patient is seen and examined. Please see my progress note from today for further detail.
== END 2017-12-03 07:30 | disposition left against medical advice (07) | DRG 917 ==
LOC: ERS 12:06 → CCU 13:14
PROVIDERS: ADMIT Internal Medicine; ATTEND Internal Medicine
PROC: 5A1935Z Respiratory Ventilation, Less than 24 Consecutive Hours (ICD-10-PCS; principal; 2017-12-01)
DX: T40.601A Poisoning by unspecified narcotics, accidental (unintentional), initial encounter (principal); A41.9 Sepsis, unspecified organism; R65.21 Severe sepsis with septic shock; J96.01 Acute respiratory failure with hypoxia; G92 Toxic encephalopathy; N17.9 Acute kidney failure, unspecified; E44.0 Moderate protein-calorie malnutrition; I95.9 Hypotension, unspecified; E87.2 Acidosis; F11.20 Opioid dependence, uncomplicated; I24.8 Other forms of acute ischemic heart disease; M62.82 Rhabdomyolysis; I11.0 Hypertensive heart disease with heart failure; I50.9 Heart failure, unspecified; E87.5 Hyperkalemia; Z95.2 Presence of prosthetic heart valve; Z79.899 Other long term (current) drug therapy; Z79.82 Long term (current) use of aspirin; Z79.02 Long term (current) use of antithrombotics/antiplatelets; Z86.73 Personal history of transient ischemic attack (TIA), and cerebral infarction without residual deficits; G89.29 Other chronic pain; M54.5 Low back pain; Z79.1 Long term (current) use of non-steroidal anti-inflammatories (NSAID); F32.9 Major depressive disorder, single episode, unspecified; F41.9 Anxiety disorder, unspecified; Z95.810 Presence of automatic (implantable) cardiac defibrillator; G40.909 Epilepsy, unspecified, not intractable, without status epilepticus; E78.5 Hyperlipidemia, unspecified; Z91.19 Patient's noncompliance with other medical treatment and regimen
CPT/HCPCS: 36415; 36556; 51702; 70450; 71045; 72125; 80048; 80053; 80306; 80307; 81003; 81015; 82550; 82553; 82805; 83605; 83690; 83735; 83880; 84484; 85025; 85610; 85730; 87040; 87086; 93005; 94002; 94003; 94640; 96361; 96365; 96366; 96368; 96374; 96376; 99292; C1751; C9113; J0692; J1650; J1953; J2060; J2543; J2704; J3010; J3370; J7050; J7620

== ENCOUNTER 2017-12-23 13:21 | Observation (INO) | payer OTHER ==
[2017-12-23] MEDS ORDERED: Morphine 4 MG/ML VIAL ONE (15:07)
--- NOTE | 2017-12-23 15:42 | RAD ---
AP VIEW OF THE CHEST: 12/23/17 INDICATION: Weakness with headache and dizziness. COMPARISON: Prior exam dated 12/03/17. FINDINGS: There is stable cardiomegaly. Aortic valvular prosthesis is similar. Multilead pacemaker is unchanged . Pulmonary vasculature is within normal limits. The lungs clear. No pleural effusion is evident. No acute osseous abnormality is evident. IMPRESSION: No acute cardiopulmonary abnormality. POS: [facility]
[2017-12-23 16:10] LABS: #Eosinphils 0.1 thou/uL (0.0-0.7); #Monocytes 0.3 thou/uL (0.11-0.59); #Neutrophils 3.1 thou/uL (1.40-6.50); %Basophils 0.6 % (0.0-1.0); %Eosinophils 1.7 % (0.0-10.0); %Lymphocytes 36.3 % (21.0-51.0); %Neutrophils 55.4 % (42.0-75.0); Hemoglobin 13.8 g/dL (14.0-18.0); Mean Corpuscular HGB CONC 34.5 g/dL (32.0-36.0); Mean Corpuscular Hemoglobin 34.1 pg (27.0-31.0); Mean Platelet Volume 7.2 fL (7.4-10.4); Platelet Count 216 thou/uL (130-400); RBC Distribution Width 12.3 % (11.5-14.5); Red Blood Cell (RBC) Count 4.04 mill/uL (4.70-6.10); White Blood Cell (WBC) Count 5.6 thou/uL (4.8-10.8)
[2017-12-23 16:15] LABS: PTT 29.5 SEC (22.9-36.1); Prothrombin Time 13.6 SEC (12.0-14.7)
[2017-12-23 16:17] LABS: Bilirubin Negative (Negative); Blood, Urine Negative (Negative); Clarity CLEAR (Clear); Glucose, Urine (Dipstick) Negative (Negative); Leukocyte Negative (Negative); Nitrite Negative (Negative); Protein, Urine (Dipstick) Negative (Neg-Trace); Specific Gravity, Urine 1.021 (1.002-1.036); Urobilinogen 0.2 mg/dL (0.2-1.0); pH, Urine 5.5 (5.0-9.0)
[2017-12-23 16:30] LABS: Acetaminophen Less than 6.0 mcg/mL (10.0-30.0); Alcohol Less than 10 mg/dL (Less than 10); Salicylate Less than 8.0 mg/dL (15.0-30.0)
[2017-12-23 16:35] LABS: ALT (SGPT) 19 U/L (8-55); AST (SGOT) 21 U/L (5-34); Albumin 3.8 g/dL (3.5-5.0); Alkaline Phosphatase 61 U/L (40-150); Anion Gap 11 mmol/L (10-20); BUN (Urea Nitrogen) 9 mg/dL (8.4-25.7); Bilirubin, Total 0.4 mg/dL (0.2-1.2); Calc. Creatinine Clearance 0 mL/min (70-130); Calcium 8.3 mg/dL (7.8-10.44); Carbon Dioxide 23 mmol/L (22-29); Chloride 108 mmol/L (98-107); Estimated GFR-MDRD Greater than 90; Globulin 3.7 g/dL (2.4-3.5); Glucose 85 mg/dL (70-105); Lipase 8 U/L (8-78); Protein, Total 7.5 g/dL (6.0-8.3); Sodium 138 mmol/L (136-145)
[2017-12-23 16:35] LABS: Troponin I Less than 0.010 ng/mL (< 0.028)
--- NOTE | 2017-12-23 17:13 | CT ---
CT OF THE BRAIN WITHOUT CONTRAST: 12/23/17 INDICATION: Fall while on Plavix. The patient reports headache and dizziness. COMPARISON: Prior exam dated 12/01/17. FINDINGS: No acute infarct, hemorrhage or hydrocephalus is present. There is stable encephalomalacia involving the right temporal lobe and right MCA distribution. Chronic small vessel white matter ischemic change s present and appears similar. The skull is intact. IMPRESSION: No acute intracranial abnormality. POS: [facility]
--- NOTE | 2017-12-23 17:23 | CT ---
CT CERVICAL SPINE WITHOUT CONTRAST: 12/23/17 INDICATION: Fall with neck pain. COMPARISON: Prior exam dated 12/01/17. FINDINGS: No acute fracture or subluxation is evident. There is stable multilevel spondylosis of the cervical s pine. Osseous central canal is preserved. There are chronic lung changes and thickening in both lung apices. The visualized prevertebral soft tissues are within normal limits. There is stable T3 and T4 compression fractures when compared to the CT lumbar spine dated 08/26/16. IMPRESSION: No acute osseous abnormality cervical spine. POS: [facility]
--- NOTE | 2017-12-23 17:26 | CT ---
CT THORACIC SPINE WITHOUT CONTRAST: 12/23/17 INDICATION: Fall with back pain. COMPARISON: Prior exam dated 08/26/16. FINDINGS: Compression abnormalities involving T3, T4 and T5 are stable. Diffuse osteopenia is similar. Multilev el spondylosis is similar appearing. Chronic lung changes are similar appearing. There is right sided AICD present. There is subsegmental volume loss within both posterior lungs. The visualized upper ab domen is unremarkable. IMPRESSION: 1. Stable T3 to T5 compression abnormalities. 2. Diffuse osteopenia. POS: [facility]
--- NOTE | 2017-12-23 17:27 | CT ---
CT OF THE LUMBAR SPINE WITHOUT CONTRAST 12/23/17 INDICATION; Fall with back pain. FINDINGS: No acute fracture or subluxation is evident. There is diffuse osteopenia. Mild multilevel spondylosis of the lumbar spine appears similar to a comparison dated 08/26/16. There are vascular calcifications involving the abdominal aorta. the visualized retroperitoneum is unremarkable. The visualized sacrum and SI joints appear within normal limits. IMPRESSION: No acute osseous abnormality. POS: [facility]
[2017-12-23 19:07] LABS: Cocaine Metabolite Screen Not Detected (NotDetected); Medtox Reader # READER 1; Phencyclidine (PCP) Not Detected (NotDetected); THC/Cannabinoid Screen Not Detected (NotDetected)
[2017-12-23 19:08] LABS: Amphetamine Not Detected (NotDetected); Barbiturates Screen Not Detected (NotDetected); Benzodiazepine Screen Detected (NotDetected); Medtox Control Line Valid? VALID (VALID); Methadone Not Detected (NotDetected); Methamphetamine Not Detected (NotDetected); Opiate Screen Detected (NotDetected); Oxycodone Screen Not Detected (NotDetected); Tricyclic Screen Not Detected (NotDetected)
[2017-12-23 19:10] LABS: Acetaminophen Less than 6.0 mcg/mL (10.0-30.0); Alcohol Less than 10 mg/dL (Less than 10); Salicylate Less than 8.0 mg/dL (15.0-30.0)
[2017-12-23] MEDS ORDERED: Acetaminophen 325 MG TAB PO PRN ×2 (19:59→23:56)
[2017-12-23] MEDS ORDERED: Ondansetron ODT 4 MG TAB SL PRN (19:59)
[2017-12-23] MEDS ORDERED: Ondansetron HCl/PF 4 MG/2 ML Vial IVP PRN (19:59)
[2017-12-23 20:31] VITALS: BMI 21.8
[2017-12-23] MEDS ORDERED: Milk Of Magnesia 30 ML UDCUP PO PRN (23:56)
[2017-12-23] MEDS ORDERED: Loperamide HCl 2 MG CAP PO PRN (23:56)
[2017-12-23] MEDS ORDERED: Senokot 8.6 MG TAB PO PRN (23:56)
[2017-12-23] MEDS ORDERED: Mag-Al 1200 mg/1200 mg/30 ML UDCUP PO PRN (23:56)
[2017-12-24] MEDS: HYDROcodone/Acetaminophen 5/325 mg Tablet PO PRN ×3 (00:15→17:34)
--- NOTE | 2017-12-24 00:53 | HP ---
PRIMARY CARE PHYSICIAN: [facility] call admission. DATE OF SERVICE: 12/23/2017 REASON FOR ADMISSION: Intractable low back pain. HISTORY OF PRESENT ILLNESS: A 52-year-old male who has chronic pain disorder, who was recently admit emmanuel in our hospital after overdoses with the pain medication and required intubation and subsequently he left hospital against medical advice. At this time, he came to emergency room with a complaint o f back pain. The patient reports that he has back pain problem for a period of time, but he is not a ble to get any injection in his back because of he is on blood thinner medication. In the emergency room, the patient had a CT thoracic spine, which showed T3-T5 compression deformities and osteopenia. All other blood test was unremarkable. After admission to medical floor as observation status, the patient threatened to leave against medical advice. The patient was a very poor historian. He is n ot focusing on one thing. He is changing his complaints frequently. REVIEW OF SYSTEMS: The following complete review of systems was negative, unless otherwise mentioned in the HPI or below: Constitutional: Weight loss or gain, ability to conduct usual activities. Sk in: Rash, itching. Eyes: Double vision, pain. ENT/Mouth: Nose bleeding, neck stiffness, pain, te nderness. Cardiovascular: Palpitations, dyspnea on exertion, orthopnea. Respiratory: Shortness of breath, wheezing, cough, hemoptysis, fever or night sweats. Gastrointestinal: Poor appetite, abdom inal pain, heartburn, nausea, vomiting, constipation, or diarrhea. Genitourinary: Urgency, frequenc y, dysuria, nocturia. Musculoskeletal: Pain, swelling. Neurologic/Psychiatric: Anxiety, depressio n. Allergy/Immunologic: Skin rash, bleeding tendency. Please see my HPI for pertinent positive and negative. All other review of systems reviewed and negative except as mentioned in the HPI. ALLERGIES: No known drug allergy. CURRENT HOME MEDICATIONS: Aspirin 325 mg p.o. daily, Lipitor 10 mg p.o. daily, Plavix 75 mg p.o. katiuska ly, Keppra 500 mg p.o. b.i.d., ramipril 2.5 mg p.o. daily, trazodone 100 mg p.o. at bedtime, venlafax ine 75 mg p.o. daily. PAST MEDICAL HISTORY: Chronic congestive heart failure; hypertension; history of mitral valve endoca rditis, required bioprosthetic mitral valve replacement; history of multiple TIAs; chronic low back p ain; chronic narcotic dependence; seizure disorder; history of CVA; dyslipidemia; osteoporosis; compr ession fracture; osteopenia. PAST PSYCHIATRIC HISTORY: Anxiety and depression. PAST SURGICAL HISTORY: Pacemaker/defibrillator replacement; bioprosthetic aortic valve replacement a nd mitral valve; history of splenic laceration after fall, required surgery; left inguinal hernia rep air; appendicectomy; history of a right hip fracture repair. SOCIAL HISTORY: The patient has polysubstance abuse history. He currently smokes about 1 pack per d ay for last 20 years. He also has a drug addiction with heroin and cocaine in the past. FAMILY HISTORY: No strong family history of premature coronary artery disease, stroke or cancer. EMERGENCY ROOM COURSE: Reviewed. PHYSICAL EXAMINATION: VITAL SIGNS: On arrival, blood pressure 138/92, pulse 92, respiratory rate 20, temperature 98.0, sat uration 100% on room air, weight 69.8 kilograms. GENERAL: The patient is currently alert, awake, in no obvious acute distress. HEAD: Normocephalic, atraumatic. EYES: Pupils are round and reactive to light. Extraocular muscle intact. ENT: Oropharynx within normal limits. Moist mucous membranes, no oral lesion, no pharyngeal erythem a, no exudate. NECK: Supple, no thyromegaly, no carotid bruit, no jugular venous distention. LUNGS: Clear to auscultation without any rhonchi or rales. CARDIAC: S1, S2 regular, systolic murmur present at apex. No gallop, no rub. ABDOMEN: Soft, bowel sounds present, nontender, nondistended. No organomegaly, no mass, no suprapub ic tenderness. BACK: Unremarkable, no CVA tenderness. EXTREMITIES: Upper extremity: Passive movement of all joints are normal. Lower extremities: No ed robert. Good peripheral pulsation. SKIN: No skin rash. HEMATOLOGICAL SYSTEM: No lymphadenopathy. PSYCHIATRIC: Flat affect. SIGNIFICANT LABORATORY DATA: CBC: WBC 5.6, hemoglobin 13.8, platelet 216. INR 1.0. BMP: Sodium 1 38, potassium 4.0, BUN 9, creatinine 0.77, glucose 85. Lactic acid 1.0, calcium 8.3, magnesium 2.1. LFT: AST 21, ALT 19, alkaline phosphatase 61, albumin 3.8, lipase 8, troponin I negative. TSH 1.20 . Ammonia 25. Urinalysis normal. Urine drug screen positive for opiates and benzodiazepine. Serum drug screen negative. Chest x-ray negative for any acute process. CT brain negative for any acute process. Lumbar spine n egative for any acute process. Thoracic spine CT scan showing a T3-T5 compression abnormality. ASSESSMENT AND PLAN: IMPRESSION: 1. Acute on chronic back pain. The patient does have a T3-T5 compression abnormality. The patient has chronic pain disorder and narcotic dependence. Pain will be controlled with pain medication as o rdered. 2. Dyslipidemia. Continue Lipitor 10 mg p.o. daily. 3. Seizure disorder. Continue Keppra 500 mg p.o. b.i.d. 4. Hypertension. Continue ramipril 2.5 mg p.o. daily. 5. Anxiety and depression. Continue trazodone 100 mg p.o. at bedtime, venlafaxine 75 mg p.o. daily. 6. History of bioprosthetic mitral valve endocarditis. Continue aspirin 325 mg p.o. daily and Plavi x 75 mg p.o. daily. 7. Tobacco abuse disorder. Smoking cessation counseling given. 8. Alcohol abuse. Counseling given to avoid alcohol abuse. 9. Deep venous thrombosis prophylaxis not needed because we are expecting discharge in 24 hours. 10. Gastrointestinal prophylaxis, Pepcid 20 mg p.o. b.i.d. 11. Code status: The patient is FULL CODE. Disposition plan based on clinical course likely within 24 hours. Plan of care discussed with the felipe campbell in detail.
[2017-12-24] MEDS: Zolpidem Tartrate 5 MG TAB PO PRN ×2 (01:49→20:30)
[2017-12-24 05:22] LABS: #Basophils 0.1 thou/uL (0.0-0.2); #Eosinphils 0.2 thou/uL (0.0-0.7); #Lymphocytes 2.2 thou/uL (1.20-3.40); #Monocytes 0.3 thou/uL (0.11-0.59); #Neutrophils 1.6 thou/uL (1.40-6.50); %Basophils 1.4 % (0.0-1.0); %Eosinophils 4.5 % (0.0-10.0); %Lymphocytes 49.8 % (21.0-51.0); %Monocytes 7.5 % (0.0-10.0); %Neutrophils 36.8 % (42.0-75.0); Mean Corpuscular HGB CONC 33.2 g/dL (32.0-36.0); Mean Corpuscular Hemoglobin 32.4 pg (27.0-31.0); Mean Corpuscular Volume 97.6 fl (80.0-94.0); Mean Platelet Volume 7.3 fL (7.4-10.4); Platelet Count 215 thou/uL (130-400); RBC Distribution Width 12.2 % (11.5-14.5); Red Blood Cell (RBC) Count 4.33 mill/uL (4.70-6.10); White Blood Cell (WBC) Count 4.4 thou/uL (4.8-10.8)
[2017-12-24 06:01] LABS: Anion Gap 11 mmol/L (10-20); BUN (Urea Nitrogen) 8 mg/dL (8.4-25.7); Calc. Creatinine Clearance 110 mL/min (70-130); Calcium 8.6 mg/dL (7.8-10.44); Carbon Dioxide 26 mmol/L (22-29); Chloride 104 mmol/L (98-107); Estimated GFR-MDRD Greater than 90; Glucose 98 mg/dL (70-105); Potassium 3.7 mmol/L (3.5-5.1); Sodium 137 mmol/L (136-145)
[2017-12-24] MEDS: Atorvastatin Calcium 10 MG TAB PO SCH ×2 (09:20→10:52)
[2017-12-24] MEDS: Clopidogrel Bisulfate 75 MG TAB PO SCH ×2 (09:20→10:52)
[2017-12-24] MEDS: Aspirin 325 MG TAB PO SCH ×2 (09:20→10:53)
[2017-12-24] MEDS: Famotidine 20 MG TAB PO SCH ×3 (09:24→20:30)
[2017-12-24] MEDS: levETIRAcetam 500 MG TAB PO SCH ×3 (09:24→20:30)
[2017-12-24] MEDS: Lidocaine 5% Patch TD SCH (17:34)
--- NOTE | 2017-12-24 20:42 | PRG ---
DATE OF SERVICE: 12/24/2017 SUBJECTIVE: The patient is seen and examined at the bedside. He has multiple nonspecific complaints to offer, but the main one is the pain in his upper back. Apparently, he had some falls recently an d he is unsteady on his feet. OBJECTIVE: VITAL SIGNS: Blood pressure is 143/97, pulse is 80, respiratory rate is 16, temperature 97.6, O2 sat uration 95% on room air. HEENT: His head is atraumatic, normocephalic. Eyes are PERRLA. Conjunctivae pinkish. Oral mucosa is moist. NECK: Supple, no lymphadenopathy. Thyroid is not palpable. LUNGS: Somewhat emphysematous. HEART: S1, S2 normal, no S3, no S4. ABDOMEN: Soft, nontender, nondistended. EXTREMITIES: No clubbing, cyanosis or edema. Tenderness in the upper part of the thoracic spine are a on palpation and applied pressure. NEUROLOGIC: He is nonfocal. There is not any sensory or motor deficits. LABORATORY DATA: Showed white count of 4.4, hemoglobin of 14.0, hematocrit is 42.3, platelet count i s 215. Normal chemistry. Microbiology: Two blood cultures normal and urine culture normal, no grow th. IMPRESSION: 1. Acute on chronic back pain, most likely related to his T3-T5 compression abnormality, which is ch ronic and I will try to use some Lidoderm patch to get some relief before he is released home tomorro w. Apparently, he was on opiates p.o. during this hospitalization and he wants more relief of the pa in. 2. Seizure disorder, on Keppra. 3. Dyslipidemia, on Lipitor. 4. Hypertension. 5. History of bioprosthetic mitral valve endocarditis, on Plavix and aspirin. 6. Alcohol abuse. 7. Tobacco abuse. PLAN: Continue his observation status. Continue PT and apply Lidoderm patch over the area where T3 and T5 is and he should be able to go home tomorrow.
[2017-12-24] MEDS ORDERED: traZODone HCl 50 MG TAB PO SCH (21:00)
[2017-12-25] MEDS: HYDROcodone/Acetaminophen 5/325 mg Tablet PO PRN ×3 (01:25→09:56)
[2017-12-25] MEDS ORDERED: Lidocaine Patch Removal TOP SCH (06:00)
[2017-12-25] MEDS: Famotidine 20 MG TAB PO SCH ×2 (07:56→09:51)
[2017-12-25] MEDS: Clopidogrel Bisulfate 75 MG TAB PO SCH ×2 (07:56→09:51)
[2017-12-25] MEDS: Aspirin 325 MG TAB PO SCH ×2 (07:56→09:51)
[2017-12-25] MEDS: Atorvastatin Calcium 10 MG TAB PO SCH ×2 (07:56→09:51)
[2017-12-25] MEDS: levETIRAcetam 500 MG TAB PO SCH ×2 (07:56→09:50)
[2017-12-25 09:01] LABS: #Eosinphils 0.1 thou/uL (0.0-0.7); #Lymphocytes 1.5 thou/uL (1.20-3.40); #Monocytes 0.5 thou/uL (0.11-0.59); #Neutrophils 3.7 thou/uL (1.40-6.50); %Basophils 0.8 % (0.0-1.0); %Lymphocytes 25.7 % (21.0-51.0); %Neutrophils 63.5 % (42.0-75.0); Hemoglobin 15.4 g/dL (14.0-18.0); Mean Corpuscular HGB CONC 33.7 g/dL (32.0-36.0); Mean Corpuscular Hemoglobin 32.5 pg (27.0-31.0); Mean Corpuscular Volume 96.4 fl (80.0-94.0); Mean Platelet Volume 7.1 fL (7.4-10.4); Platelet Count 268 thou/uL (130-400); RBC Distribution Width 12.2 % (11.5-14.5); Red Blood Cell (RBC) Count 4.73 mill/uL (4.70-6.10); White Blood Cell (WBC) Count 5.8 thou/uL (4.8-10.8)
[2017-12-25 09:23] LABS: Anion Gap 12 mmol/L (10-20); BUN (Urea Nitrogen) 12 mg/dL (8.4-25.7); Calc. Creatinine Clearance 100 mL/min (70-130); Calcium 9.3 mg/dL (7.8-10.44); Carbon Dioxide 24 mmol/L (22-29); Chloride 104 mmol/L (98-107); Estimated GFR-MDRD Greater than 90; Glucose 94 mg/dL (70-105); Potassium 3.7 mmol/L (3.5-5.1); Sodium 136 mmol/L (136-145)
[2017-12-25] MEDS ORDERED: Acetaminophen/Codeine 30-300mg Tablet PO PRN ×2 (12:17)
[2017-12-25] MEDS ORDERED: Ketorolac Tromethamine 30 MG/ML VIAL IVP SCH (12:30)
[2017-12-25] MEDS ORDERED: Ketorolac Tromethamine 10 MG TAB PO SCH (12:30)
--- NOTE | 2017-12-25 14:53 | DIS ---
DATE OF ADMISSION: 12/23/2017 DATE OF DISCHARGE: 12/25/2017 PRIMARY CARE PROVIDER: Heather Mcgee M.D. DISCHARGE DIAGNOSES: 1. Acute on chronic back pain. 2. Suicidal ideation. CONDITION OF PATIENT ON THE DAY OF DISCHARGE: Stable. I assessed Mr. Clark on the day of dischar . He denies any chest pain or shortness of breath. He reports that back pain is still present, on and off, slightly improved compared to the last 2 days. He also reported that he would like to pull his pacemaker out. Vital signs are stable. S1 and S2 are heard, regular. Lungs are clear to auscu ltation bilaterally. HOSPITAL COURSE: Mr. Clark is a pleasant 52-year-old gentleman who was admitted to [facility] for acute on chronic back pain. He was started on Lidoderm patch during this hos pitalization, with mild improvement in the pain. He was advised to follow up with pain specialist as referred by his primary care provider. On 12/25/2017, he expressed thoughts of self harm, including pulling out his pacemaker. [facility] was con sulted. I spoke to the patient and he expressed suicidal ideation to [facility]. He is being discharged t o [facility] for further management. DISCHARGE MEDICATIONS: Aspirin 325 mg daily, atorvastatin 10 mg daily, Plavix 75 mg daily, lidocaine patch 5% patch daily, ramipril 2.5 mg daily, venlafaxine 75 mg daily, Keppra 500 mg 2 times a day an d trazodone 100 mg at bedtime. Many thanks for allowing me to participate in your patient's care. Please feel free to contact me wi th any questions or concerns. DISCHARGE DESTINATION: [facility].
[2017-12-25] MEDS ORDERED: Nicotine 21 MG PATCH TOP SCH (16:00)
[2017-12-25 16:49] VITALS: BP 132/88; TEMP 97.8
--- NOTE | 2017-12-25 17:36 | PDOC.PN ---
- Subjective Encounter Start Date: 12/25/17 Encounter Start Time: 15:50 Pt seen for followup re: acute on chronic pain. Reports pain slightly better. Denies fevers or chills. Reports he is tired of life. - Objective Resuscitation Status: Resuscitation Status FULL:Full Resuscitation MAR Reviewed: Yes Vital Signs & Weight: Vital Signs (12 hours) Temp Pulse Resp BP Pulse Ox 12/25/17 16:48 97.8 F 86 18 132/88 95 12/25/17 11:16 97.4 F L 77 18 128/87 95 12/25/17 08:01 97.3 F L 86 18 12/25/17 07:34 86 18 113/77 96 Weight Weight 147 lb 11.355 oz Result Diagrams: 12/25/17 08:44 12/25/17 08:44 Phys Exam - Physical Examination Constitutional: NAD HEENT: moist MMs Neck: supple Respiratory: clear to auscultation bilateral Cardiovascular: RRR Gastrointestinal: soft Neurological: moves all 4 limbs Psychiatric: normal affect, A&O x 3 Dx/Plan (1) Acute exacerbation of chronic low back pain Code(s): M54.5 - LOW BACK PAIN; G89.29 - OTHER CHRONIC PAIN Status: Acute Comment: continue lidocaine patch (2) Suicidal ideation Code(s): R45.851 - SUICIDAL IDEATIONS Status: Acute Comment: Pt has been evaluated by [facility]. Awaiting bed at [facility]. (3) H/O endocarditis Code(s): Z86.79 - PERSONAL HISTORY OF OTHER DISEASES OF THE CIRCULATORY SYSTEM Status: Chronic Comment: stable (4) History of mitral valve replacement Code(s): Z95.2 - PRESENCE OF PROSTHETIC HEART VALVE Status: Chronic Comment : stable (5) Hypertension Code(s): I10 - ESSENTIAL (PRIMARY) HYPERTENSION Status: Chronic Qualifiers: Comment: Monitor vital signs, titrate antihypertensives as needed - Plan * . Review of Systems - Review of Systems Constitutional: negative: fever, chills, sweats, weakness, malaise Cardiovascular: negative: chest pain, palpitations, orthopnea, paroxysmal nocturnal dyspnea, edema, light headedness Musculoskeletal: Back Pain - Medications/Allergies Allergies/Adverse Reactions: Allergies Allergy/AdvReac Type Severity Reaction Status Date / Time No Known Drug Allergies Allergy Verified 05/23/17 03:37 Medications: Current Medications Acetaminophen (Tylenol) 650 mg PO Q4H PRN PRN Reason: Headache/Fever or Pain Acetaminophen/Codeine Phosphate (Tylenol #3) 1 tab PO Q6H PRN PRN Reason: Moderate Pain (4-6) Acetaminophen/Codeine Phosphate (Tylenol #3) 2 tab PO Q6H PRN PRN Reason: Moderate to Severe Pain (6-10) Al Hydroxide/Mg Hydroxide (Maalox) 30 ml PO Q6H PRN PRN Reason: Heartburn or Indigestion Aspirin (Aspirin) 325 mg PO DAILY [facility] Last Admin: 12/25/17 09:51 Dose: 325 mg Atorvastatin Calcium (Lipitor) 10 mg PO DAILY [facility] Last Admin: 12/25/17 09:51 Dose: 10 mg Clopidogrel Bisulfate (Plavix) 75 mg PO DAILY [facility] Last Admin: 12/25/17 09:51 Dose: 75 mg Famotidine (Pepcid) 20 mg PO BID [facility] Last Admin: 12/25/17 09:51 Dose: 20 mg Levetiracetam (Keppra) 500 mg PO BID [facility] Last Admin: 12/25/17 09:50 Dose: 500 mg Lidocaine (Lidoderm 5% Patch) 1 patch TD DAILY@1800 [facility] Last Admin: 12/24/17 17:34 Dose: 1 patch Loperamide HCl (Imodium) 2 mg PO PRN PRN PRN Reason: Diarrhea/Loose Stools Magnesium Hydroxide (Milk Of Magnesium) 30 ml PO DAILYPRN PRN PRN Reason: Constipation Miscellaneous Medication (Lidocaine Patch Removal) 1 each TOP 0600 [facility] Last Admin: 12/25/17 03:15 Dose: Not Given Nicotine (Nicoderm Patch) 21 mg TOP Q24HR [facility] Ramipril (Altace) 2.5 mg PO DAILY [facility] Last Admin: 12/25/17 09:51 Dose: 2.5 mg Senna (Senokot) 2 tab PO HSPRN PRN PRN Reason: Constipation Trazodone HCl (Desyrel) 100 mg PO HS [facility] Last Admin: 12/24/17 20:32 Dose: Not Given Venlafaxine HCl (Effexor) 75 mg PO DAILY [facility] Last Admin: 12/25/17 09:51 Dose: 75 mg Zolpidem Tartrate (Ambien) 5 mg PO HSPRN PRN PRN Reason: Insomnia Last Admin: 12/24/17 20:30 Dose: 5 mg
[2017-12-25] MEDS: Lidocaine 5% Patch TD SCH (17:50)
--- NOTE | 2017-12-26 19:25 | DIS ---
PRIMARY CARE PROVIDER: Heather Mcgee M.D. DATE OF ADMISSION: 12/23/2017 The patient left the hospital against medical advice on 12/25/2017. HOSPITAL COURSE: Mr. Clark is a pleasant 52-year-old gentleman who was admitted to [facility] on 12/23/2017 for acute on chronic pain. He subsequently reported suicidal ideat ion. [facility] was consulted and the patient was recommended inpatient psychiatric care. He left against medical advice on 12/25/2017.
== END 2017-12-25 19:45 | disposition left against medical advice (07) ==
LOC: ERS 13:21 → T4-B 18:20
PROVIDERS: ADMIT Internal Medicine; ATTEND Internal Medicine
DX: M54.5 Low back pain (principal); G89.29 Other chronic pain; G40.909 Epilepsy, unspecified, not intractable, without status epilepticus; I50.9 Heart failure, unspecified; E78.5 Hyperlipidemia, unspecified; I10 Essential (primary) hypertension; F17.210 Nicotine dependence, cigarettes, uncomplicated; Z79.82 Long term (current) use of aspirin; Z79.899 Other long term (current) drug therapy; Z79.02 Long term (current) use of antithrombotics/antiplatelets; Z98.890 Other specified postprocedural states; Z90.49 Acquired absence of other specified parts of digestive tract
CPT/HCPCS: 36415; 70450; 71045; 72125; 72128; 72131; 80048; 80053; 80306; 80307; 81003; 82140; 83605; 83690; 83735; 84443; 84484; 85025; 85610; 85730; 87040; 87086; 87149; 93005; 96361; 96365; 96375; G0378; G8978-GP-CJ; G8979-GP-CI; J2270; J3411; J7050